=== PATIENT | male | born 1955 | race Caucasian/White ===

== ENCOUNTER 2022-10-25 20:26 | Emergency (ER) | payer MEDICARE, MEDICAID ==
[~2022-10-25] VITALS: Ht 172.7 cm; Wt 75.0 kg
[2022-10-25] MEDS ORDERED: BENZ0.5T49 PO (21:57)
[2022-10-25] MEDS ORDERED: RISP0.5T39 PO (21:57)
[2022-10-25] MEDS ORDERED: HALO5TAB23 PO (21:57)
[2022-10-25] MEDS ORDERED: GABA-1181 PO (21:57)
[2022-10-25] MEDS ORDERED: HALO5VIA16 IM (21:57)
[2022-10-25] MEDS ORDERED: HYDR-4870 PO (21:57)
[2022-10-25] MEDS ORDERED: LORA2I IM (21:57)
[2022-10-25] MEDS ORDERED: LOSA-382 PO (21:57)
[2022-10-25 22:26] LABS: AMPHET/METH SCREEN,URINE NEGATIVE (NEGATIVE); BARBITURATE SCREEN, URINE NEGATIVE (NEGATIVE); BENZODIAZEPINES SCREEN,URINE NEGATIVE (NEGATIVE); CANNABINOID SCREEN,URINE NEGATIVE (NEGATIVE); COCAINE SCREEN,URINE NEGATIVE (NEGATIVE); METHADONE SCREEN, URINE NEGATIVE (NEGATIVE); OPIATE SCREEN,URINE NEGATIVE (NEGATIVE); PHENCYCLIDINE SCREEN,URINE NEGATIVE (NEGATIVE)
[2022-10-25 22:38] LABS: BASOPHILS % (AUTO) 0.6 % (0.0-2.0); EOSINOPHILS % (AUTO) 4.1 % (1.0-6.0); HEMOGLOBIN 12.5 g/dL (13.5-17.5); LYMPHOCYTES # (AUTO) 1.7 K/uL (1.0-4.8); LYMPHOCYTES % (AUTO) 20.9 % (22.0-44.0); MEAN CORPUSCULAR HEMOGLOBIN 30.9 pg (26.0-34.0); MEAN CORPUSCULAR HGB CONC 33.1 G/dL (31.0-37.0); MEAN CORPUSCULAR VOLUME 94 fL (80-100); MONOCYTES # (AUTO) 0.6 K/uL (0.1-1.0); MONOCYTES % (AUTO) 7.7 % (2.0-9.0); NEUTROPHILS # (AUTO) 5.4 K/uL (1.8-7.7); NEUTROPHILS % (AUTO) 66.7 % (40.0-70.0); PLATELET COUNT (AUTO) 170 K/uL (150-450); RED BLOOD CELL COUNT(AUTO) 4.06 MIL/uL (4.50-5.90); RED CELL DISTRIBUTION WIDTH 13.7 % (11.5-14.5)
[2022-10-25 22:48] LABS: ANION GAP 8 mmol/L (8-16); CALCIUM, TOTAL 9.2 mg/dL (8.8-10.5); CARBON DIOXIDE 27 mmol/L (22-29); CHLORIDE 102 mmol/L (98-107); CREATININE 0.75 mg/dL (0.60-1.30); GLOMERULAR FILTR. RATE CALC > 60 mL/min (>60); GLUCOSE,RANDOM 107 mg/dL (70-110); POTASSIUM 3.9 mmol/L (3.5-5.1); SODIUM SERUM 137 mmol/L (136-145); UREA NITROGEN, BLOOD 22 mg/dL (7-18)
[2022-10-25 22:56] LABS: ALANINE AMINOTRANSFERASE 31 U/L (12-78); ALKALINE PHOSPHATASE 80 U/L (46-116); ASPARTATE AMINOTRANSFERASE 17 U/L (15-37); BILIRUBIN,TOTAL 0.3 mg/dL (0.1-1.0)
[2022-10-26 01:30] VITALS: BP 152/87
== END 2022-10-26 02:00 | disposition home or self-care (01) ==
LOC: EMS 20:30
DX: Z04.6 Encounter for general psychiatric examination, requested by authority (principal); J44.9 Chronic obstructive pulmonary disease, unspecified; I10 Essential (primary) hypertension; F20.9 Schizophrenia, unspecified; Z88.5 Allergy status to narcotic agent; Z88.6 Allergy status to analgesic agent; Z88.8 Allergy status to other drugs, medicaments and biological substances
CPT/HCPCS: 99283; 80053; 85025; 36415; 80307 ×2; G0480

== ENCOUNTER 2022-11-27 17:55 | Emergency (ER) | payer MEDICARE, MEDICAID ==
[~2022-11-27] VITALS: Ht 175.3 cm; Wt 57.0 kg
[~2022-11-27 17:55] MED LIST: BENZ0.5T49 PO; GABA-1181 PO; HALO5TAB23 PO; HALO5VIA16 IM; HYDR25TA2 PO; LORA2I IM; LOSA-382 PO; RISP0.5T39 PO
[2022-11-27 19:52] LABS: BASOPHILS % (AUTO) 0.8 % (0.0-2.0); EOSINOPHILS % (AUTO) 1.6 % (1.0-6.0); HEMATOCRIT 44.5 % (41-53); LYMPHOCYTES # (AUTO) 1.8 K/uL (1.0-4.8); LYMPHOCYTES % (AUTO) 16.3 % (22.0-44.0); MEAN CORPUSCULAR HEMOGLOBIN 31.9 pg (26.0-34.0); MEAN CORPUSCULAR HGB CONC 33.7 G/dL (31.0-37.0); MEAN CORPUSCULAR VOLUME 95 fL (80-100); MONOCYTES # (AUTO) 0.7 K/uL (0.1-1.0); MONOCYTES % (AUTO) 6.3 % (2.0-9.0); NEUTROPHILS # (AUTO) 8.5 K/uL (1.8-7.7); PLATELET COUNT (AUTO) 205 K/uL (150-450); RED CELL DISTRIBUTION WIDTH 13.9 % (11.5-14.5)
[2022-11-27 20:02] LABS: ANION GAP 10 mmol/L (8-16); CARBON DIOXIDE 28 mmol/L (22-29); CHLORIDE 101 mmol/L (98-107); CREATININE 0.86 mg/dL (0.60-1.30); GLOMERULAR FILTR. RATE CALC > 60 mL/min (>60); GLUCOSE,RANDOM 107 mg/dL (70-110); POTASSIUM 4.1 mmol/L (3.5-5.1); SODIUM SERUM 139 mmol/L (136-145)
[2022-11-27 20:07] LABS: ALANINE AMINOTRANSFERASE 25 U/L (12-78); ALBUMIN 4.7 g/dL (3.4-5.0); ALKALINE PHOSPHATASE 110 U/L (46-116); ASPARTATE AMINOTRANSFERASE 22 U/L (15-37); BILIRUBIN,TOTAL 0.4 mg/dL (0.1-1.0); TOTAL PROTEIN, SERUM 8.2 g/dL (6.4-8.2)
[2022-11-27 20:20] LABS: AMPHET/METH SCREEN,URINE NEGATIVE (NEGATIVE); BARBITURATE SCREEN, URINE NEGATIVE (NEGATIVE); BENZODIAZEPINES SCREEN,URINE NEGATIVE (NEGATIVE); CANNABINOID SCREEN,URINE NEGATIVE (NEGATIVE); COCAINE SCREEN,URINE NEGATIVE (NEGATIVE); METHADONE SCREEN, URINE NEGATIVE (NEGATIVE); OPIATE SCREEN,URINE NEGATIVE (NEGATIVE); PHENCYCLIDINE SCREEN,URINE NEGATIVE (NEGATIVE)
[2022-11-27 23:45] VITALS: BP 156/90
== END 2022-11-28 00:14 | disposition home or self-care (01) ==
LOC: EMS 18:18
DX: F03.911 Unspecified dementia, unspecified severity, with agitation (principal); J44.9 Chronic obstructive pulmonary disease, unspecified; E03.9 Hypothyroidism, unspecified; F20.9 Schizophrenia, unspecified; I25.10 Atherosclerotic heart disease of native coronary artery without angina pectoris; I10 Essential (primary) hypertension; Z98.890 Other specified postprocedural states; Z88.5 Allergy status to narcotic agent; Z88.6 Allergy status to analgesic agent; Z88.8 Allergy status to other drugs, medicaments and biological substances
CPT/HCPCS: 99284; 80053; 85025; 36415; 80307; G0480

== ENCOUNTER 2023-03-29 19:21 | Emergency (ER) | payer MEDICARE, MEDICAID ==
[~2023-03-29] VITALS: Ht 177.8 cm; Wt 68.2 kg
[~2023-03-29 19:21] MED LIST changes: -BENZ0.5T49 PO; +CYAN500T56 PO; -HALO5TAB23 PO; -HALO5VIA16 IM; +HYDR12.54 PO; +HYDR25TA PO; -HYDR25TA2 PO; +LEVO137T2 PO; +LEVO50 PO; +LITH300C3 PO; +LITH300CRT PO; -LORA2I IM; +LOSA100T59 PO; +OMEP20 PO; +OXCA300T28 PO; +OXCA600T18 PO; -RISP0.5T39 PO; +RISP0.5T66 PO; +RISP1TAB48 PO
[2023-03-29 19:58] VITALS: BP 123/71; PULSE 73; RESP 15; TEMP 98.3
[2023-03-29 20:13] LABS: COVID AG,FIA SOURCE NASOPHARYNGEAL
[2023-03-29 20:24] LABS: BASOPHILS % (AUTO) 0.9 % (0.0-2.0); EOSINOPHILS % (AUTO) 3.2 % (1.0-6.0); HEMATOCRIT 34.6 % (41-53); HEMOGLOBIN 11.8 g/dL (13.5-17.5); LYMPHOCYTES # (AUTO) 1.4 K/uL (1.0-4.8); LYMPHOCYTES % (AUTO) 17.9 % (22.0-44.0); MEAN CORPUSCULAR HEMOGLOBIN 31.8 pg (26.0-34.0); MEAN CORPUSCULAR VOLUME 93 fL (80-100); MONOCYTES # (AUTO) 0.6 K/uL (0.1-1.0); MONOCYTES % (AUTO) 8.4 % (2.0-9.0); NEUTROPHILS # (AUTO) 5.4 K/uL (1.8-7.7); NEUTROPHILS % (AUTO) 69.6 % (40.0-70.0); PLATELET COUNT (AUTO) 172 K/uL (150-450); RED CELL DISTRIBUTION WIDTH 12.9 % (11.5-14.5); WHITE BLOOD COUNT (AUTO) 7.8 K/uL (4.5-11.0)
[2023-03-29] MEDS ORDERED: RisperiDONE 1 MG TABLET PO ONE (20:30)
[2023-03-29] MEDS ORDERED: LORazepam 1 MG TABLET PO ONE (20:30)
[2023-03-29 20:34] LABS: ANION GAP 7 mmol/L (8-16); CALCIUM, TOTAL 8.9 mg/dL (8.8-10.5); CARBON DIOXIDE 25 mmol/L (22-29); CHLORIDE 104 mmol/L (98-107); CREATININE 0.82 mg/dL (0.60-1.30); GLOMERULAR FILTR. RATE CALC > 60 mL/min (>60); GLUCOSE,RANDOM 115 mg/dL (70-110); POTASSIUM 3.5 mmol/L (3.5-5.1); SODIUM SERUM 136 mmol/L (136-145); UREA NITROGEN, BLOOD 29 mg/dL (7-18)
[2023-03-29 20:35] LABS: SARS-COV2 (COVID) ANTIGEN,FIA Negative (Negative)
[2023-03-29 20:41] LABS: ALCOHOL, BLOOD (SERUM) < 3 mg/dL (0-10)
[2023-03-29 20:48] LABS: ALANINE AMINOTRANSFERASE 30 U/L (12-78); ALBUMIN 3.6 g/dL (3.4-5.0); ALKALINE PHOSPHATASE 92 U/L (46-116); ASPARTATE AMINOTRANSFERASE 25 U/L (15-37); BILIRUBIN,TOTAL 0.4 mg/dL (0.1-1.0); THYROID STIMULATING HORMONE 0.67 uIU/mL (0.36-3.74); TOTAL PROTEIN, SERUM 6.4 g/dL (6.4-8.2)
== END 2023-03-29 22:45 | disposition home or self-care (01) ==
LOC: EMS 19:22
DX: F25.0 Schizoaffective disorder, bipolar type (principal); F43.0 Acute stress reaction; J44.9 Chronic obstructive pulmonary disease, unspecified; E03.9 Hypothyroidism, unspecified; I25.10 Atherosclerotic heart disease of native coronary artery without angina pectoris; I10 Essential (primary) hypertension; Z98.890 Other specified postprocedural states; Z88.5 Allergy status to narcotic agent; Z88.6 Allergy status to analgesic agent; Z88.8 Allergy status to other drugs, medicaments and biological substances; Z20.822 Contact with and (suspected) exposure to COVID-19
CPT/HCPCS: 99284; 87426; 80053; 80178; 84443; 85025; 36415; G0480

== ENCOUNTER 2023-04-05 22:52 | Emergency (ER) | payer MEDICARE, MEDICAID ==
[~2023-04-05] VITALS: Ht 177.8 cm; Wt 68.2 kg
[~2023-04-05 22:52] MED LIST changes: -HYDR12.54 PO; -LEVO137T2 PO; -LITH300CRT PO; -LOSA100T59 PO; -OXCA600T18 PO; -RISP1TAB48 PO
[2023-04-05 23:55] LABS: COVID AG,FIA SOURCE NASAL SWAB
[2023-04-05 23:57] LABS: BASOPHILS % (AUTO) 0.4 % (0.0-2.0); EOSINOPHILS % (AUTO) 1.3 % (1.0-6.0); HEMATOCRIT 40.5 % (41-53); HEMOGLOBIN 13.6 g/dL (13.5-17.5); LYMPHOCYTES # (AUTO) 1.2 K/uL (1.0-4.8); LYMPHOCYTES % (AUTO) 9.3 % (22.0-44.0); MEAN CORPUSCULAR HEMOGLOBIN 31.4 pg (26.0-34.0); MEAN CORPUSCULAR HGB CONC 33.5 G/dL (31.0-37.0); MEAN CORPUSCULAR VOLUME 94 fL (80-100); MONOCYTES # (AUTO) 0.9 K/uL (0.1-1.0); MONOCYTES % (AUTO) 7.5 % (2.0-9.0); NEUTROPHILS # (AUTO) 10.1 K/uL (1.8-7.7); NEUTROPHILS % (AUTO) 81.5 % (40.0-70.0); PLATELET COUNT (AUTO) 221 K/uL (150-450); RED BLOOD CELL COUNT(AUTO) 4.32 MIL/uL (4.50-5.90); WHITE BLOOD COUNT (AUTO) 12.4 K/uL (4.5-11.0)
[2023-04-06 00:05] LABS: CALCIUM, TOTAL 9.9 mg/dL (8.8-10.5); CARBON DIOXIDE 31 mmol/L (22-29); CHLORIDE 101 mmol/L (98-107); CREATININE 0.92 mg/dL (0.60-1.30); GLOMERULAR FILTR. RATE CALC > 60 mL/min (>60); GLUCOSE,RANDOM 126 mg/dL (70-110); POTASSIUM 4.4 mmol/L (3.5-5.1); UREA NITROGEN, BLOOD 24 mg/dL (7-18)
[2023-04-06 00:11] LABS: ALANINE AMINOTRANSFERASE 35 U/L (12-78); ALBUMIN 4.1 g/dL (3.4-5.0); ALKALINE PHOSPHATASE 100 U/L (46-116); ANION GAP 8 mmol/L (8-16); ASPARTATE AMINOTRANSFERASE 23 U/L (15-37); BILIRUBIN,TOTAL 0.5 mg/dL (0.1-1.0); SODIUM SERUM 140 mmol/L (136-145); TOTAL PROTEIN, SERUM 7.3 g/dL (6.4-8.2)
[2023-04-06 00:14] LABS: SARS-COV2 (COVID) ANTIGEN,FIA Negative (Negative)
[2023-04-06 00:15] LABS: ALCOHOL, BLOOD (SERUM) < 3 mg/dL (0-10)
[2023-04-06 00:24] LABS: PH,URINE DRUG SCREEN 7.5 (5.0-8.0)
[2023-04-06 00:36] LABS: ALCOHOL, URINE DRUG SCREEN NEGATIVE (NEGATIVE); AMPHET/METH SCREEN,URINE NEGATIVE (NEGATIVE); BARBITURATE SCREEN, URINE NEGATIVE (NEGATIVE); BENZODIAZEPINES SCREEN,URINE NEGATIVE (NEGATIVE); CANNABINOID SCREEN,URINE NEGATIVE (NEGATIVE); COCAINE SCREEN,URINE NEGATIVE (NEGATIVE); METHADONE SCREEN, URINE NEGATIVE (NEGATIVE); OPIATE SCREEN,URINE NEGATIVE (NEGATIVE); PHENCYCLIDINE SCREEN,URINE NEGATIVE (NEGATIVE)
[2023-04-06] MEDS ORDERED: ONDANSETRON HCL 4 MG TABLET PO ONE (01:00)
[2023-04-06 03:05] VITALS: BP 155/81; PULSE 88; RESP 18; TEMP 98
== END 2023-04-06 03:16 | disposition home or self-care (01) ==
LOC: EMS 22:53
DX: F25.0 Schizoaffective disorder, bipolar type (principal); R11.2 Nausea with vomiting, unspecified; I25.10 Atherosclerotic heart disease of native coronary artery without angina pectoris; I10 Essential (primary) hypertension; J44.9 Chronic obstructive pulmonary disease, unspecified; E03.9 Hypothyroidism, unspecified; Z98.890 Other specified postprocedural states; Z88.5 Allergy status to narcotic agent; Z88.6 Allergy status to analgesic agent; Z20.822 Contact with and (suspected) exposure to COVID-19
CPT/HCPCS: 99284; 87426; 80053; 80178; 85025; 36415; 80307; 71045; G0480; Q0162

== ENCOUNTER 2023-04-19 20:46 | Emergency (ER) | payer MEDICARE, MEDICAID ==
[~2023-04-19] VITALS: Ht 165.1 cm; Wt 72.5 kg
[2023-04-19 21:28] VITALS: TEMP 98.6
[2023-04-19 21:29] LABS: BASOPHILS % (AUTO) 0.8 % (0.0-2.0); EOSINOPHILS % (AUTO) 2.9 % (1.0-6.0); HEMATOCRIT 41.3 % (41-53); HEMOGLOBIN 14.2 g/dL (13.5-17.5); LYMPHOCYTES # (AUTO) 1.4 K/uL (1.0-4.8); LYMPHOCYTES % (AUTO) 19.5 % (22.0-44.0); MEAN CORPUSCULAR HEMOGLOBIN 32.1 pg (26.0-34.0); MEAN CORPUSCULAR HGB CONC 34.2 G/dL (31.0-37.0); MEAN CORPUSCULAR VOLUME 94 fL (80-100); MONOCYTES # (AUTO) 0.5 K/uL (0.1-1.0); MONOCYTES % (AUTO) 7.4 % (2.0-9.0); NEUTROPHILS # (AUTO) 5.1 K/uL (1.8-7.7); NEUTROPHILS % (AUTO) 69.4 % (40.0-70.0); PLATELET COUNT (AUTO) 214 K/uL (150-450); RED CELL DISTRIBUTION WIDTH 13.3 % (11.5-14.5); WHITE BLOOD COUNT (AUTO) 7.3 K/uL (4.5-11.0)
[2023-04-19 21:42] LABS: ANION GAP 7 mmol/L (8-16); CALCIUM, TOTAL 10.2 mg/dL (8.8-10.5); CARBON DIOXIDE 30 mmol/L (22-29); CHLORIDE 97 mmol/L (98-107); CREATININE 0.91 mg/dL (0.60-1.30); GLOMERULAR FILTR. RATE CALC > 60 mL/min (>60); GLUCOSE,RANDOM 103 mg/dL (70-110); POTASSIUM 3.8 mmol/L (3.5-5.1); SODIUM SERUM 134 mmol/L (136-145); UREA NITROGEN, BLOOD 23 mg/dL (7-18)
[2023-04-19 21:47] LABS: ALANINE AMINOTRANSFERASE 49 U/L (12-78); ALBUMIN 4.3 g/dL (3.4-5.0); ALKALINE PHOSPHATASE 96 U/L (46-116); ASPARTATE AMINOTRANSFERASE 20 U/L (15-37); BILIRUBIN,TOTAL 0.5 mg/dL (0.1-1.0); LIPASE 38 U/L (16-77); TOTAL PROTEIN, SERUM 8.2 g/dL (6.4-8.2)
[2023-04-19 21:51] LABS: TROPONIN I-HIGH SENSITIVITY 9 ng/L (<76)
[2023-04-19 22:22] LABS: ALCOHOL, BLOOD (SERUM) < 3 mg/dL (0-10)
[2023-04-19 22:27] LABS: PROTHROMBIN TIME 10.2 SEC (9.4-11.6)
[2023-04-19 22:28] LABS: CREATINE KINASE, TOTAL ONLY 64 U/L (39-308)
[2023-04-19 22:32] LABS: B-TYPE NATRIURETIC PEPTIDE 8 pg/mL (0-100)
[2023-04-19 23:00] LABS: TROPONIN I-HIGH SENSITIVITY 10 ng/L (<76)
[2023-04-20] MEDS ORDERED: AmLODIPine BESYLATE 5 MG TABLET PO ONE ×2 (00:30→01:30)
[2023-04-20 00:47] LABS: APPEARANCE,URINE CLEAR (CLEAR); BILIRUBIN,URINE NEGATIVE (NEGATIVE); COLOR,URINE COLORLESS (YELLOW); GLUCOSE, URINE (UA) NEGATIVE (NEGATIVE); KETONES,URINE NEGATIVE (NEGATIVE); LEUKOCYTE ESTERASE ,URINE NEGATIVE (NEGATIVE); NITRATE,URINE NEGATIVE (NEGATIVE); OCCULT BLOOD,URINE NEGATIVE (NEGATIVE); PH,URINE 7.5 (5.0-8.0); PH,URINE DRUG SCREEN 7.5 (5.0-8.0); PROTEIN,URINE NEGATIVE (NEGATIVE); SPECIFIC GRAVITIY, URINE 1.011 (1.003-1.030); UROBILINOGEN,URINE <=1.0 mg/dL (<=1.0)
[2023-04-20 00:54] LABS: AMPHET/METH SCREEN,URINE NEGATIVE (NEGATIVE); BARBITURATE SCREEN, URINE NEGATIVE (NEGATIVE); BENZODIAZEPINES SCREEN,URINE NEGATIVE (NEGATIVE); CANNABINOID SCREEN,URINE NEGATIVE (NEGATIVE); COCAINE SCREEN,URINE NEGATIVE (NEGATIVE); METHADONE SCREEN, URINE NEGATIVE (NEGATIVE); OPIATE SCREEN,URINE NEGATIVE (NEGATIVE); PHENCYCLIDINE SCREEN,URINE NEGATIVE (NEGATIVE)
[2023-04-20 01:01] LABS: ALCOHOL, URINE DRUG SCREEN NEGATIVE (NEGATIVE)
[2023-04-20 04:49] VITALS: BP 170/92; PULSE 70; RESP 20
== END 2023-04-20 05:07 | disposition home or self-care (01) ==
LOC: EMS 20:47
DX: R07.9 Chest pain, unspecified (principal); D64.9 Anemia, unspecified; I10 Essential (primary) hypertension; K21.9 Gastro-esophageal reflux disease without esophagitis; F20.9 Schizophrenia, unspecified; J44.9 Chronic obstructive pulmonary disease, unspecified; R56.9 Unspecified convulsions; I25.10 Atherosclerotic heart disease of native coronary artery without angina pectoris; Z88.5 Allergy status to narcotic agent
CPT/HCPCS: 99285; 71045; 80053; 81003; 82550; 83690; 83880; 84484; 85025; 85610; 85730; 36415; 93005; 80307; G0480

== ENCOUNTER 2023-06-08 13:14 | Inpatient (IN) | payer MEDICARE, MEDICAID ==
[~2023-06-08] VITALS: Ht 185.4 cm; Wt 72.7 kg
[~2023-06-08 13:14] MED LIST changes: +AMLO-257 PO; -CYAN500T56 PO; +ESCI-8 PO; +FAMO20 PO; -HYDR25TA PO; +HYDR25TA2 PO; +LEVO125T95 PO; -LEVO50 PO; -OMEP20 PO; -OXCA300T28 PO; +OXCA300T70 PO
[2023-06-08] MEDS ORDERED: AmLODIPine BESYLATE 5 MG TABLET PO ONE (14:45)
[2023-06-08] MEDS ORDERED: LOSARTAN POTASSIUM 50 MG TABLET PO ONE (16:00)
[2023-06-08] MEDS ORDERED: HYDROCHLOROTHIAZIDE 25 MG TABLET PO ONE (16:00)
[2023-06-08 17:31] LABS: COVID AG,FIA SOURCE NASAL SWAB
[2023-06-08 17:48] LABS: SARS-COV2 (COVID) ANTIGEN,FIA Negative (Negative)
[2023-06-08 18:29] LABS: BASOPHILS % (AUTO) 0.7 % (0.0-2.0); EOSINOPHILS % (AUTO) 1.2 % (1.0-6.0); HEMATOCRIT 37.4 % (41-53); HEMOGLOBIN 12.7 g/dL (13.5-17.5); LYMPHOCYTES # (AUTO) 1.1 K/uL (1.0-4.8); LYMPHOCYTES % (AUTO) 14.2 % (22.0-44.0); MEAN CORPUSCULAR HGB CONC 33.9 G/dL (31.0-37.0); MEAN CORPUSCULAR VOLUME 94 fL (80-100); MONOCYTES # (AUTO) 0.6 K/uL (0.1-1.0); MONOCYTES % (AUTO) 7.8 % (2.0-9.0); NEUTROPHILS # (AUTO) 6.1 K/uL (1.8-7.7); NEUTROPHILS % (AUTO) 76.1 % (40.0-70.0); PLATELET COUNT (AUTO) 176 K/uL (150-450); RED BLOOD CELL COUNT(AUTO) 3.96 MIL/uL (4.50-5.90); RED CELL DISTRIBUTION WIDTH 13.4 % (11.5-14.5)
[2023-06-08 18:33] LABS: ANION GAP 11 mmol/L (8-16); CALCIUM, TOTAL 9.2 mg/dL (8.8-10.5); CARBON DIOXIDE 24 mmol/L (22-29); CHLORIDE 103 mmol/L (98-107); CREATININE 0.75 mg/dL (0.60-1.30); GLOMERULAR FILTR. RATE CALC > 60 mL/min (>60); GLUCOSE,RANDOM 120 mg/dL (70-110); SODIUM SERUM 138 mmol/L (136-145); UREA NITROGEN, BLOOD 26 mg/dL (7-18)
[2023-06-08 18:39] LABS: ALANINE AMINOTRANSFERASE 37 U/L (12-78); ALBUMIN 4.2 g/dL (3.4-5.0); ALKALINE PHOSPHATASE 84 U/L (46-116); ASPARTATE AMINOTRANSFERASE 22 U/L (15-37); BILIRUBIN,TOTAL 0.7 mg/dL (0.1-1.0); TOTAL PROTEIN, SERUM 7.3 g/dL (6.4-8.2)
[2023-06-08 19:02] LABS: ALCOHOL, BLOOD (SERUM) < 3 mg/dL (0-10)
[2023-06-08] MEDS: HALOPERIDOL 5 MG TABLET PO PRN (22:45)
[2023-06-08] MEDS: LORazepam 2 MG TABLET PO PRN (22:45)
[2023-06-09 00:03] VITALS: BP 176/94; PULSE 77; RESP 20; TEMP 97.8; O2SAT 98
[2023-06-09] MEDS ORDERED: ONDANSETRON HCL 4 MG TABLET PO PRN (07:00)
[2023-06-09] MEDS ORDERED: DOCUSATE SODIUM 100 MG CAPSULE PO PRN (07:00)
[2023-06-09] MEDS ORDERED: PETROLATUM,WHITE 28 GM JELLY TP PRN (07:00)
[2023-06-09] MEDS ORDERED: ALBUTEROL SULFATE HFA 90 MCG/PUFF 8 GM INHALER IH PRN (07:00)
[2023-06-09] MEDS ORDERED: GuaiFENesin/D-METHORPHAN [SUGAR-FREE] 200-20MG/10 ML SYRUP UDCUP PO PRN (07:00)
[2023-06-09] MEDS ORDERED: CloNIDine HCL 0.1 MG TABLET PO PRN (07:00)
[2023-06-09] MEDS ORDERED: ACETAMINOPHEN 325 MG TABLET PO PRN (07:00)
[2023-06-09] MEDS ORDERED: LOPERAMIDE HCL 2 MG CAPSULE PO PRN (07:00)
[2023-06-09] MEDS ORDERED: NICOTINE 14 MG/24 HOUR PATCH TD PRN (07:00)
[2023-06-09] MEDS ORDERED: MAGNESIUM HYDROXIDE SUSPENSION 30 ML UDCUP PO PRN (07:00)
[2023-06-09 08:59] VITALS: BP 161/78; PULSE 79; RESP 18; TEMP 96.8; O2SAT 95
[2023-06-09] MEDS: HYDROCHLOROTHIAZIDE 25 MG TABLET PO SCH (09:05)
[2023-06-09] MEDS: OXcarbazepine 300 MG TABLET PO SCH ×2 (09:05→16:24)
[2023-06-09] MEDS: LOSARTAN POTASSIUM 50 MG TABLET PO SCH (09:06)
[2023-06-09] MEDS: FAMOTIDINE 20 MG TABLET PO SCH ×2 (09:06→16:24)
[2023-06-09] MEDS: LEVOTHYROXINE SODIUM 75 MCG TABLET PO SCH (09:07)
[2023-06-09] MEDS: RisperiDONE 2 MG TABLET PO SCH ×2 (12:20→16:23)
[2023-06-09] MEDS: LITHIUM CARBONATE 300 MG CAPSULE PO SCH ×2 (12:20→16:23)
[2023-06-09] MEDS: ESCITALOPRAM OXALATE 10 MG TABLET PO SCH (12:20)
[2023-06-09] MEDS: CarBAMazepine 200 MG TABLET PO SCH ×2 (12:20→16:24)
[2023-06-09] MEDS: HALOPERIDOL 5 MG TABLET PO PRN (20:54)
[2023-06-09] MEDS: LORazepam 2 MG TABLET PO PRN (20:54)
[2023-06-09] MEDS: AmLODIPine BESYLATE 5 MG TABLET PO SCH (21:00)
[2023-06-09 21:30] VITALS: BP 115/68; PULSE 91; RESP 18; TEMP 97.8; O2SAT 95
[2023-06-10] MEDS: LEVOTHYROXINE SODIUM 75 MCG TABLET PO SCH (06:20)
[2023-06-10] MEDS: LOSARTAN POTASSIUM 50 MG TABLET PO SCH (08:09)
[2023-06-10] MEDS: OXcarbazepine 300 MG TABLET PO SCH ×2 (08:12→16:06)
[2023-06-10] MEDS: FAMOTIDINE 20 MG TABLET PO SCH ×2 (08:12→16:06)
[2023-06-10] MEDS: LITHIUM CARBONATE 300 MG CAPSULE PO SCH ×2 (08:12→16:06)
[2023-06-10] MEDS: HYDROCHLOROTHIAZIDE 25 MG TABLET PO SCH (08:12)
[2023-06-10] MEDS: ESCITALOPRAM OXALATE 10 MG TABLET PO SCH (08:12)
[2023-06-10] MEDS: RisperiDONE 2 MG TABLET PO SCH ×2 (08:12→16:05)
[2023-06-10] MEDS: CarBAMazepine 200 MG TABLET PO SCH ×2 (08:12→16:06)
[2023-06-10 08:18] LABS: CHOL/HDL RATIO 4.8 (4.2-7.3)
[2023-06-10 09:25] VITALS: BP 135/67; PULSE 74; RESP 18; TEMP 97.5; O2SAT 74
[2023-06-10] MEDS: IBUPROFEN 400 MG TABLET PO PRN (15:34)
[2023-06-10] MEDS: AmLODIPine BESYLATE 5 MG TABLET PO SCH (20:37)
[2023-06-10 21:06] VITALS: BP 104/55; PULSE 57; RESP 18; TEMP 97.1; O2SAT 99
[2023-06-11] MEDS: LEVOTHYROXINE SODIUM 75 MCG TABLET PO SCH (06:35)
[2023-06-11] MEDS: LOSARTAN POTASSIUM 50 MG TABLET PO SCH (08:13)
[2023-06-11] MEDS: FAMOTIDINE 20 MG TABLET PO SCH ×2 (08:13→16:45)
[2023-06-11] MEDS: LITHIUM CARBONATE 300 MG CAPSULE PO SCH ×2 (08:13→16:45)
[2023-06-11] MEDS: RisperiDONE 2 MG TABLET PO SCH ×2 (08:13→16:45)
[2023-06-11] MEDS: CarBAMazepine 200 MG TABLET PO SCH ×2 (08:13→16:45)
[2023-06-11] MEDS: HYDROCHLOROTHIAZIDE 25 MG TABLET PO SCH (08:14)
[2023-06-11] MEDS: OXcarbazepine 300 MG TABLET PO SCH ×2 (08:14→16:46)
[2023-06-11] MEDS: ESCITALOPRAM OXALATE 10 MG TABLET PO SCH (08:14)
[2023-06-11 08:31] VITALS: BP 155/64; PULSE 74; RESP 19; TEMP 97.8; O2SAT 100
[2023-06-11] MEDS: LORazepam 2 MG TABLET PO PRN (21:08)
[2023-06-11] MEDS: HALOPERIDOL 5 MG TABLET PO PRN (21:08)
[2023-06-11] MEDS: AmLODIPine BESYLATE 5 MG TABLET PO SCH (21:08)
[2023-06-11 21:28] VITALS: RESP 18
[2023-06-12] MEDS: LEVOTHYROXINE SODIUM 75 MCG TABLET PO SCH (06:09)
[2023-06-12] MEDS: OXcarbazepine 300 MG TABLET PO SCH ×3 (09:00→17:00)
[2023-06-12] MEDS: RisperiDONE 2 MG TABLET PO SCH ×3 (09:00→17:00)
[2023-06-12] MEDS: FAMOTIDINE 20 MG TABLET PO SCH ×3 (09:00→17:00)
[2023-06-12] MEDS: CarBAMazepine 200 MG TABLET PO SCH ×3 (09:00→17:00)
[2023-06-12] MEDS: LITHIUM CARBONATE 300 MG CAPSULE PO SCH ×3 (09:00→17:00)
[2023-06-12 09:19] VITALS: BP 154/83; PULSE 54; RESP 18; TEMP 97.3; O2SAT 95
[2023-06-12] MEDS: LOSARTAN POTASSIUM 50 MG TABLET PO SCH (09:54)
[2023-06-12] MEDS: ESCITALOPRAM OXALATE 10 MG TABLET PO SCH (09:54)
[2023-06-12] MEDS: HYDROCHLOROTHIAZIDE 25 MG TABLET PO SCH (09:56)
[2023-06-12] MEDS ORDERED: HALOPERIDOL LACTATE 5 MG/ML VIAL ONE (13:28)
[2023-06-12] MEDS ORDERED: LOSA-382 PO (13:31)
[2023-06-12] MEDS ORDERED: LEVO75 PO (13:31)
[2023-06-12] MEDS ORDERED: LITH300C3 PO (13:31)
[2023-06-12] MEDS: HALOPERIDOL LACTATE 5 MG/ML VIAL IM PRN ×2 (13:50→19:01)
[2023-06-12 21:00] VITALS: BP 152/75; PULSE 60; RESP 18; TEMP 98.8; O2SAT 99
[2023-06-12] MEDS: AmLODIPine BESYLATE 5 MG TABLET PO SCH (21:08)
[2023-06-12] MEDS: HALOPERIDOL 5 MG TABLET PO PRN (21:08)
[2023-06-12] MEDS: LORazepam 2 MG TABLET PO PRN (21:08)
[2023-06-13 04:45] VITALS: BP 143/77; PULSE 66; RESP 18; TEMP 98.2; O2SAT 99
[2023-06-13] MEDS: IBUPROFEN 400 MG TABLET PO PRN (04:50)
[2023-06-13 05:45] VITALS: RESP 18
[2023-06-13] MEDS: LEVOTHYROXINE SODIUM 75 MCG TABLET PO SCH (06:15)
[2023-06-13 08:39] VITALS: BP 151/91; PULSE 53; RESP 18; TEMP 97.9; O2SAT 98
[2023-06-13] MEDS: FAMOTIDINE 20 MG TABLET PO SCH ×2 (09:00→17:23)
[2023-06-13] MEDS: HYDROCHLOROTHIAZIDE 25 MG TABLET PO SCH (09:00)
[2023-06-13] MEDS: LITHIUM CARBONATE 300 MG CAPSULE PO SCH ×2 (09:00→17:24)
[2023-06-13] MEDS: OXcarbazepine 300 MG TABLET PO SCH ×2 (09:00→17:25)
[2023-06-13] MEDS: CarBAMazepine 200 MG TABLET PO SCH ×2 (09:00→17:24)
[2023-06-13] MEDS: ESCITALOPRAM OXALATE 10 MG TABLET PO SCH (09:00)
[2023-06-13] MEDS: LOSARTAN POTASSIUM 50 MG TABLET PO SCH (09:00)
[2023-06-13] MEDS: RisperiDONE 2 MG TABLET PO SCH ×2 (09:24→17:24)
[2023-06-13] MEDS: MAG HYDROX/ALUMINUM HYD/SIMETH ES 30 ML SUSPENSION UDCUP PO PRN (17:23)
[2023-06-13 20:47] VITALS: TEMP 97
[2023-06-13] MEDS: AmLODIPine BESYLATE 5 MG TABLET PO SCH (21:06)
[2023-06-14] MEDS: LEVOTHYROXINE SODIUM 75 MCG TABLET PO SCH (06:52)
[2023-06-14 08:34] VITALS: BP 127/67; PULSE 79; RESP 18; TEMP 97.8; O2SAT 100
[2023-06-14] MEDS: LOSARTAN POTASSIUM 50 MG TABLET PO SCH (09:07)
[2023-06-14] MEDS: CarBAMazepine 200 MG TABLET PO SCH ×2 (09:07→16:09)
[2023-06-14] MEDS: ESCITALOPRAM OXALATE 10 MG TABLET PO SCH (09:07)
[2023-06-14] MEDS: RisperiDONE 2 MG TABLET PO SCH ×2 (09:07→16:09)
[2023-06-14] MEDS: FAMOTIDINE 20 MG TABLET PO SCH ×2 (09:07→16:08)
[2023-06-14] MEDS: LITHIUM CARBONATE 300 MG CAPSULE PO SCH ×2 (09:07→16:08)
[2023-06-14] MEDS: OXcarbazepine 300 MG TABLET PO SCH ×2 (09:07→16:09)
[2023-06-14] MEDS: HYDROCHLOROTHIAZIDE 25 MG TABLET PO SCH (09:07)
[2023-06-14] MEDS: LORazepam 2 MG TABLET PO PRN (20:07)
[2023-06-14 20:12] VITALS: BP 165/70; PULSE 60; RESP 18; TEMP 98; O2SAT 98
[2023-06-14] MEDS: MAG HYDROX/ALUMINUM HYD/SIMETH ES 30 ML SUSPENSION UDCUP PO PRN (20:34)
[2023-06-14] MEDS: AmLODIPine BESYLATE 5 MG TABLET PO SCH (20:51)
[2023-06-15] MEDS: LEVOTHYROXINE SODIUM 75 MCG TABLET PO SCH (06:45)
[2023-06-15 08:00] VITALS: BP 122/70; PULSE 53; RESP 17; TEMP 98; O2SAT 97
[2023-06-15] MEDS: LITHIUM CARBONATE 300 MG CAPSULE PO SCH ×2 (08:26→16:12)
[2023-06-15] MEDS: RisperiDONE 2 MG TABLET PO SCH ×2 (08:27→16:12)
[2023-06-15] MEDS: FAMOTIDINE 20 MG TABLET PO SCH ×2 (08:27→16:12)
[2023-06-15] MEDS: LOSARTAN POTASSIUM 50 MG TABLET PO SCH (08:27)
[2023-06-15] MEDS: ESCITALOPRAM OXALATE 10 MG TABLET PO SCH (08:27)
[2023-06-15] MEDS: OXcarbazepine 300 MG TABLET PO SCH ×2 (08:27→16:12)
[2023-06-15] MEDS: CarBAMazepine 200 MG TABLET PO SCH ×2 (08:27→16:12)
[2023-06-15] MEDS: HYDROCHLOROTHIAZIDE 25 MG TABLET PO SCH (08:28)
[2023-06-15] MEDS: AmLODIPine BESYLATE 5 MG TABLET PO SCH (20:54)
[2023-06-15 21:08] VITALS: BP 132/81; PULSE 63; RESP 18; TEMP 98.1; O2SAT 97
[2023-06-16] MEDS: LEVOTHYROXINE SODIUM 75 MCG TABLET PO SCH (06:52)
[2023-06-16] MEDS: LOSARTAN POTASSIUM 50 MG TABLET PO SCH ×2 (09:00→10:00)
[2023-06-16] MEDS: ESCITALOPRAM OXALATE 10 MG TABLET PO SCH (09:15)
[2023-06-16] MEDS: RisperiDONE 2 MG TABLET PO SCH ×2 (09:15→16:08)
[2023-06-16] MEDS: LITHIUM CARBONATE 300 MG CAPSULE PO SCH ×2 (09:15→16:08)
[2023-06-16] MEDS: CarBAMazepine 200 MG TABLET PO SCH ×2 (09:15→16:08)
[2023-06-16] MEDS: FAMOTIDINE 20 MG TABLET PO SCH ×2 (09:15→16:08)
[2023-06-16] MEDS: OXcarbazepine 300 MG TABLET PO SCH ×2 (09:15→16:07)
[2023-06-16] MEDS: HYDROCHLOROTHIAZIDE 25 MG TABLET PO SCH (09:15)
[2023-06-16 10:27] VITALS: BP 127/56; PULSE 56; RESP 17; TEMP 98; O2SAT 100
[2023-06-16] MEDS: IBUPROFEN 400 MG TABLET PO PRN (14:27)
[2023-06-16 20:53] VITALS: BP 151/55; PULSE 62; RESP 20; TEMP 97.1; O2SAT 98
[2023-06-16] MEDS: LORazepam 2 MG TABLET PO PRN (21:26)
[2023-06-16] MEDS: AmLODIPine BESYLATE 5 MG TABLET PO SCH (21:26)
[2023-06-16] MEDS: HALOPERIDOL 5 MG TABLET PO PRN (21:26)
[2023-06-17] MEDS: MAG HYDROX/ALUMINUM HYD/SIMETH ES 30 ML SUSPENSION UDCUP PO PRN (05:39)
[2023-06-17] MEDS: LEVOTHYROXINE SODIUM 75 MCG TABLET PO SCH (06:07)
[2023-06-17 08:00] VITALS: BP 145/56; PULSE 65; RESP 18; TEMP 98.2; O2SAT 99
[2023-06-17] MEDS: CarBAMazepine 200 MG TABLET PO SCH ×2 (08:50→16:08)
[2023-06-17] MEDS: OXcarbazepine 300 MG TABLET PO SCH ×2 (08:50→16:09)
[2023-06-17] MEDS: RisperiDONE 2 MG TABLET PO SCH ×2 (08:50→16:09)
[2023-06-17] MEDS: ESCITALOPRAM OXALATE 10 MG TABLET PO SCH (08:51)
[2023-06-17] MEDS: LOSARTAN POTASSIUM 50 MG TABLET PO SCH (08:51)
[2023-06-17] MEDS: FAMOTIDINE 20 MG TABLET PO SCH ×2 (08:51→16:09)
[2023-06-17] MEDS: HYDROCHLOROTHIAZIDE 25 MG TABLET PO SCH (08:51)
[2023-06-17] MEDS: LITHIUM CARBONATE 300 MG CAPSULE PO SCH ×2 (08:51→16:09)
[2023-06-17 20:57] VITALS: BP 112/75; PULSE 65; RESP 18; TEMP 97.7; O2SAT 98
[2023-06-17] MEDS: AmLODIPine BESYLATE 5 MG TABLET PO SCH (21:02)
[2023-06-17 21:48] VITALS: BP 112/75; PULSE 63; RESP 19; TEMP 97.7; O2SAT 96
[2023-06-18] MEDS: LEVOTHYROXINE SODIUM 75 MCG TABLET PO SCH (06:50)
[2023-06-18] MEDS: ESCITALOPRAM OXALATE 10 MG TABLET PO SCH (08:08)
[2023-06-18] MEDS: OXcarbazepine 300 MG TABLET PO SCH ×2 (08:08→16:28)
[2023-06-18] MEDS: FAMOTIDINE 20 MG TABLET PO SCH ×2 (08:08→16:28)
[2023-06-18] MEDS: HYDROCHLOROTHIAZIDE 25 MG TABLET PO SCH (08:08)
[2023-06-18] MEDS: RisperiDONE 2 MG TABLET PO SCH ×2 (08:08→16:28)
[2023-06-18] MEDS: CarBAMazepine 200 MG TABLET PO SCH ×2 (08:08→16:27)
[2023-06-18] MEDS: LITHIUM CARBONATE 300 MG CAPSULE PO SCH ×2 (08:08→16:27)
[2023-06-18] MEDS: LOSARTAN POTASSIUM 50 MG TABLET PO SCH (08:19)
[2023-06-18 09:01] VITALS: BP 122/54; PULSE 75; RESP 18; TEMP 98; O2SAT 99
[2023-06-18] MEDS: MAG HYDROX/ALUMINUM HYD/SIMETH ES 30 ML SUSPENSION UDCUP PO PRN ×2 (16:10→22:11)
[2023-06-18 20:00] VITALS: BP 107/57; PULSE 56; RESP 18; TEMP 97.2; O2SAT 99
[2023-06-18] MEDS: AmLODIPine BESYLATE 5 MG TABLET PO SCH (21:00)
[2023-06-19] MEDS: LEVOTHYROXINE SODIUM 75 MCG TABLET PO SCH (06:51)
[2023-06-19] MEDS: OXcarbazepine 300 MG TABLET PO SCH ×2 (09:00→16:12)
[2023-06-19] MEDS: ESCITALOPRAM OXALATE 10 MG TABLET PO SCH (09:00)
[2023-06-19] MEDS: HYDROCHLOROTHIAZIDE 25 MG TABLET PO SCH (09:00)
[2023-06-19] MEDS: RisperiDONE 2 MG TABLET PO SCH ×2 (09:00→16:13)
[2023-06-19] MEDS: CarBAMazepine 200 MG TABLET PO SCH ×2 (09:00→16:13)
[2023-06-19] MEDS: LITHIUM CARBONATE 300 MG CAPSULE PO SCH ×2 (09:00→16:13)
[2023-06-19] MEDS: LOSARTAN POTASSIUM 50 MG TABLET PO SCH (09:00)
[2023-06-19] MEDS: FAMOTIDINE 20 MG TABLET PO SCH ×2 (09:00→16:13)
[2023-06-19 10:25] VITALS: BP 131/67; PULSE 58; RESP 18; TEMP 97.3; O2SAT 97
[2023-06-19] MEDS: IBUPROFEN 400 MG TABLET PO PRN (10:25)
[2023-06-19 20:41] VITALS: BP 118/56; PULSE 62; RESP 19; TEMP 98.7; O2SAT 97
[2023-06-19] MEDS: AmLODIPine BESYLATE 5 MG TABLET PO SCH (20:53)
[2023-06-20] MEDS: LORazepam 2 MG TABLET PO PRN (02:10)
[2023-06-20] MEDS: LEVOTHYROXINE SODIUM 75 MCG TABLET PO SCH (06:36)
[2023-06-20 08:52] VITALS: BP 114/60; PULSE 60; RESP 18; TEMP 97.9; O2SAT 98
[2023-06-20] MEDS: LITHIUM CARBONATE 300 MG CAPSULE PO SCH ×2 (08:52→17:24)
[2023-06-20] MEDS: HYDROCHLOROTHIAZIDE 25 MG TABLET PO SCH (08:52)
[2023-06-20] MEDS: RisperiDONE 2 MG TABLET PO SCH ×2 (08:52→17:24)
[2023-06-20] MEDS: CarBAMazepine 200 MG TABLET PO SCH ×2 (08:53→17:24)
[2023-06-20] MEDS: FAMOTIDINE 20 MG TABLET PO SCH ×2 (08:55→17:26)
[2023-06-20] MEDS: LOSARTAN POTASSIUM 50 MG TABLET PO SCH (08:55)
[2023-06-20] MEDS: ESCITALOPRAM OXALATE 10 MG TABLET PO SCH (08:55)
[2023-06-20] MEDS: OXcarbazepine 300 MG TABLET PO SCH ×2 (08:55→17:25)
[2023-06-20] MEDS: AmLODIPine BESYLATE 5 MG TABLET PO SCH (20:59)
[2023-06-20 21:01] VITALS: BP 102/70; PULSE 84; RESP 18; TEMP 97.1; O2SAT 96
[2023-06-20] MEDS: MAG HYDROX/ALUMINUM HYD/SIMETH ES 30 ML SUSPENSION UDCUP PO PRN (21:06)
[2023-06-21] MEDS: LORazepam 2 MG TABLET PO PRN ×2 (01:16→21:16)
[2023-06-21] MEDS: LEVOTHYROXINE SODIUM 75 MCG TABLET PO SCH (06:34)
[2023-06-21 09:18] VITALS: BP 115/54; PULSE 92; RESP 18; TEMP 97.3; O2SAT 98
[2023-06-21] MEDS: FAMOTIDINE 20 MG TABLET PO SCH ×2 (10:26→17:11)
[2023-06-21] MEDS: RisperiDONE 2 MG TABLET PO SCH ×2 (10:26→17:11)
[2023-06-21] MEDS: HYDROCHLOROTHIAZIDE 25 MG TABLET PO SCH (10:26)
[2023-06-21] MEDS: ESCITALOPRAM OXALATE 10 MG TABLET PO SCH (10:26)
[2023-06-21] MEDS: OXcarbazepine 300 MG TABLET PO SCH ×2 (10:26→17:11)
[2023-06-21] MEDS: LITHIUM CARBONATE 300 MG CAPSULE PO SCH ×2 (10:26→17:11)
[2023-06-21] MEDS: CarBAMazepine 200 MG TABLET PO SCH ×2 (10:26→17:11)
[2023-06-21] MEDS: LOSARTAN POTASSIUM 50 MG TABLET PO SCH (10:27)
[2023-06-21] MEDS: IBUPROFEN 400 MG TABLET PO PRN (12:15)
[2023-06-21 20:44] VITALS: BP 121/56; PULSE 83; RESP 18; TEMP 97.7; O2SAT 96
[2023-06-21] MEDS: AmLODIPine BESYLATE 5 MG TABLET PO SCH (21:16)
[2023-06-22] MEDS: HALOPERIDOL 5 MG TABLET PO PRN (01:59)
[2023-06-22] MEDS: LEVOTHYROXINE SODIUM 75 MCG TABLET PO SCH (06:40)
[2023-06-22 09:54] VITALS: BP 126/68; PULSE 60; RESP 19; TEMP 97.3; O2SAT 95
[2023-06-22] MEDS: LOSARTAN POTASSIUM 50 MG TABLET PO SCH (10:49)
[2023-06-22] MEDS: FAMOTIDINE 20 MG TABLET PO SCH ×2 (10:49→17:23)
[2023-06-22] MEDS: ESCITALOPRAM OXALATE 10 MG TABLET PO SCH (10:49)
[2023-06-22] MEDS: CarBAMazepine 200 MG TABLET PO SCH ×2 (10:50→17:23)
[2023-06-22] MEDS: HYDROCHLOROTHIAZIDE 25 MG TABLET PO SCH (10:50)
[2023-06-22] MEDS: LITHIUM CARBONATE 300 MG CAPSULE PO SCH ×2 (10:50→17:23)
[2023-06-22] MEDS: RisperiDONE 2 MG TABLET PO SCH ×2 (10:50→17:23)
[2023-06-22] MEDS: OXcarbazepine 300 MG TABLET PO SCH ×2 (10:52→17:23)
[2023-06-22] MEDS: AmLODIPine BESYLATE 5 MG TABLET PO SCH (21:00)
[2023-06-22 21:48] VITALS: BP 121/62; PULSE 83; RESP 18; TEMP 98.1; O2SAT 98
[2023-06-23] MEDS: LEVOTHYROXINE SODIUM 75 MCG TABLET PO SCH (06:36)
[2023-06-23] MEDS: LOSARTAN POTASSIUM 50 MG TABLET PO SCH (08:30)
[2023-06-23] MEDS: OXcarbazepine 300 MG TABLET PO SCH (08:30)
[2023-06-23] MEDS: FAMOTIDINE 20 MG TABLET PO SCH (08:31)
[2023-06-23] MEDS: RisperiDONE 2 MG TABLET PO SCH (08:31)
[2023-06-23] MEDS: ESCITALOPRAM OXALATE 10 MG TABLET PO SCH (08:31)
[2023-06-23] MEDS: HYDROCHLOROTHIAZIDE 25 MG TABLET PO SCH (08:31)
[2023-06-23] MEDS: LITHIUM CARBONATE 300 MG CAPSULE PO SCH (08:31)
[2023-06-23] MEDS: CarBAMazepine 200 MG TABLET PO SCH (08:31)
[2023-06-23 10:04] VITALS: BP 163/58; PULSE 61; RESP 19; TEMP 97.9; O2SAT 95
[2023-06-23] MEDS ORDERED: CARB-92 PO (12:34)
[2023-06-23] MEDS ORDERED: RISP2TAB86 PO (12:37)
== END 2023-06-23 13:25 | DRG 885 ==
LOC: EMS 13:16 → 3EI 21:27
PROVIDERS: ADMIT Psychiatry & Neurology Psychiatry; ATTEND Psychiatry & Neurology Psychiatry
PROC: GZHZZZZ Group Psychotherapy (ICD-10-PCS; principal; 2023-06-09)
DX: F25.0 Schizoaffective disorder, bipolar type (principal); K21.9 Gastro-esophageal reflux disease without esophagitis; I10 Essential (primary) hypertension; E03.9 Hypothyroidism, unspecified; F03.90 Unspecified dementia, unspecified severity, without behavioral disturbance, psychotic disturbance, mood disturbance, and anxiety; G89.29 Other chronic pain; M54.50 Low back pain, unspecified; G62.9 Polyneuropathy, unspecified; D64.9 Anemia, unspecified; I25.10 Atherosclerotic heart disease of native coronary artery without angina pectoris; Z20.822 Contact with and (suspected) exposure to COVID-19; J44.9 Chronic obstructive pulmonary disease, unspecified; G40.909 Epilepsy, unspecified, not intractable, without status epilepticus; Z87.820 Personal history of traumatic brain injury; Z88.5 Allergy status to narcotic agent; Z79.899 Other long term (current) drug therapy
CPT/HCPCS: 80053; 80061; 83036; 84443; 85025; 87081; 99285; G0480; J1630; Q0162

== ENCOUNTER 2023-08-15 10:29 | Emergency (ER) | payer MEDICARE, MEDICAID ==
[~2023-08-15] VITALS: Ht 177.8 cm; Wt 72.7 kg
[~2023-08-15 10:29] MED LIST changes: +CARB-92 PO; -GABA-1181 PO; -HYDR25TA2 PO; -LEVO125T95 PO; +LEVO75 PO; -RISP0.5T66 PO; +RISP120S SQ
[2023-08-15 11:23] VITALS: TEMP 97.8
[2023-08-15 13:28] VITALS: BP 179/84; PULSE 65; RESP 16
== END 2023-08-15 13:31 | disposition home or self-care (01) ==
LOC: EMS 10:29
DX: R10.30 Lower abdominal pain, unspecified (principal); F31.9 Bipolar disorder, unspecified; J44.9 Chronic obstructive pulmonary disease, unspecified; I10 Essential (primary) hypertension; E03.9 Hypothyroidism, unspecified; F20.9 Schizophrenia, unspecified; F03.90 Unspecified dementia, unspecified severity, without behavioral disturbance, psychotic disturbance, mood disturbance, and anxiety; Z98.890 Other specified postprocedural states
CPT/HCPCS: 99281; Z7502

== ENCOUNTER 2023-12-13 21:44 | Inpatient (IN) | payer MEDICARE, MEDICAID ==
[~2023-12-13] VITALS: Ht 165.1 cm; Wt 72.8 kg
[~2023-12-13 21:44] MED LIST changes: -CARB-92 PO; -FAMO20 PO; -LITH300C3 PO; +LITH300T PO; -LOSA-382 PO; +MELA5TAB40 PO
[2023-12-13 23:06] LABS: BASOPHILS % (AUTO) 0.4 % (0.0-2.0); EOSINOPHILS % (AUTO) 3.3 % (1.0-6.0); HEMATOCRIT 35.2 % (41-53); HEMOGLOBIN 11.8 g/dL (13.5-17.5); LYMPHOCYTES # (AUTO) 1.5 K/uL (1.0-4.8); LYMPHOCYTES % (AUTO) 13.7 % (22.0-44.0); MEAN CORPUSCULAR HEMOGLOBIN 32.2 pg (26.0-34.0); MEAN CORPUSCULAR HGB CONC 33.4 G/dL (31.0-37.0); MEAN CORPUSCULAR VOLUME 96 fL (80-100); MONOCYTES # (AUTO) 1.2 K/uL (0.1-1.0); MONOCYTES % (AUTO) 10.9 % (2.0-9.0); NEUTROPHILS # (AUTO) 7.7 K/uL (1.8-7.7); NEUTROPHILS % (AUTO) 71.7 % (40.0-70.0); PLATELET COUNT (AUTO) 163 K/uL (150-450); RED BLOOD CELL COUNT(AUTO) 3.66 MIL/uL (4.50-5.90); RED CELL DISTRIBUTION WIDTH 13.2 % (11.5-14.5); WHITE BLOOD COUNT (AUTO) 10.8 K/uL (4.5-11.0)
[2023-12-13 23:09] LABS: COVID AG,FIA SOURCE NASAL SWAB
[2023-12-13 23:11] LABS: APPEARANCE,URINE CLEAR (CLEAR); BILIRUBIN,URINE NEGATIVE (NEGATIVE); COLOR,URINE LIGHT YELLOW (YELLOW); GLUCOSE, URINE (UA) NEGATIVE (NEGATIVE); KETONES,URINE NEGATIVE (NEGATIVE); LEUKOCYTE ESTERASE ,URINE NEGATIVE (NEGATIVE); NITRATE,URINE NEGATIVE (NEGATIVE); OCCULT BLOOD,URINE NEGATIVE (NEGATIVE); PH,URINE 7.5 (5.0-8.0); PH,URINE DRUG SCREEN 7.5 (5.0-8.0); PROTEIN,URINE NEGATIVE (NEGATIVE); SPECIFIC GRAVITIY, URINE 1.013 (1.003-1.030); UROBILINOGEN,URINE <=1.0 mg/dL (<=1.0)
[2023-12-13 23:13] LABS: ALCOHOL, BLOOD (SERUM) < 3 mg/dL (0-10); ANION GAP 7 mmol/L (8-16); CALCIUM, TOTAL 9.4 mg/dL (8.8-10.5); CARBON DIOXIDE 28 mmol/L (22-29); CHLORIDE 104 mmol/L (98-107); GLOMERULAR FILTR. RATE CALC > 60 mL/min (>60); GLUCOSE,RANDOM 108 mg/dL (70-110); LITHIUM 1.23 mmol/L (0.60-1.20); SODIUM SERUM 139 mmol/L (136-145); UREA NITROGEN, BLOOD 16 mg/dL (7-18)
[2023-12-13 23:17] LABS: ALCOHOL, URINE DRUG SCREEN NEGATIVE (NEGATIVE); AMPHET/METH SCREEN,URINE NEGATIVE (NEGATIVE); BARBITURATE SCREEN, URINE NEGATIVE (NEGATIVE); BENZODIAZEPINES SCREEN,URINE NEGATIVE (NEGATIVE); CANNABINOID SCREEN,URINE NEGATIVE (NEGATIVE); COCAINE SCREEN,URINE NEGATIVE (NEGATIVE); METHADONE SCREEN, URINE NEGATIVE (NEGATIVE); OPIATE SCREEN,URINE NEGATIVE (NEGATIVE); PHENCYCLIDINE SCREEN,URINE NEGATIVE (NEGATIVE)
[2023-12-13 23:21] LABS: TROPONIN I-HIGH SENSITIVITY 7 ng/L (<76)
[2023-12-13 23:25] LABS: BACTERIA,URINE None Seen /HPF (None Seen); RBC,URINE 0-2 /HPF (0-2); SQUAMOUS EPITHELIAL CELL,UR Rare /LPF (None Seen); WBC,URINE 0-2 /HPF (0-5)
[2023-12-13 23:27] LABS: SARS-COV2 (COVID) ANTIGEN,FIA Negative (Negative)
[2023-12-14] MEDS ORDERED: FAMO20 PO (06:36)
[2023-12-14 14:37] VITALS: BP 174/84; PULSE 68; RESP 18; TEMP 97.4; O2SAT 96
[2023-12-14 15:10] VITALS: BP 174/84; PULSE 68; RESP 18; TEMP 97.4; O2SAT 96
[2023-12-14 17:00] VITALS: BP 163/76; PULSE 71; RESP 18; TEMP 98; O2SAT 98
[2023-12-14] MEDS: MAG HYDROX/ALUMINUM HYD/SIMETH ES 30 ML SUSPENSION UDCUP PO PRN (17:13)
[2023-12-14 17:21] VITALS: BP 161/87; PULSE 68; RESP 18; O2SAT 98
[2023-12-14] MEDS ORDERED: PNEUMOCOCCAL VACCINE POLYVALENT 0.5 ML SYRINGE [PPSV23] IM. ONE (18:00)
[2023-12-14] MEDS: OMEPRAZOLE 20 MG CAPSULE PO ONE (18:27)
[2023-12-14] MEDS: AmLODIPine BESYLATE 5 MG TABLET PO SCH (19:31)
[2023-12-14 20:07] VITALS: BP 162/69; PULSE 71; RESP 18; TEMP 98.1; O2SAT 96
[2023-12-14] MEDS ORDERED: NICOTINE 14 MG/24 HOUR PATCH TD PRN (22:00)
[2023-12-14] MEDS ORDERED: PETROLATUM,WHITE 28 GM JELLY TP PRN (22:00)
[2023-12-14] MEDS ORDERED: GuaiFENesin/D-METHORPHAN [SUGAR-FREE] 200-20MG/10 ML SYRUP UDCUP PO PRN (22:00)
[2023-12-14] MEDS ORDERED: ONDANSETRON HCL 4 MG TABLET PO PRN (22:00)
[2023-12-14] MEDS ORDERED: MAG HYDROX/ALUMINUM HYD/SIMETH ES 30 ML SUSPENSION UDCUP PO PRN (22:00)
[2023-12-14] MEDS ORDERED: ALBUTEROL SULFATE HFA 90 MCG/PUFF 8 GM INHALER IH PRN (22:00)
[2023-12-14] MEDS ORDERED: LOPERAMIDE HCL 2 MG CAPSULE PO PRN (22:00)
[2023-12-14] MEDS ORDERED: ACETAMINOPHEN 325 MG TABLET PO PRN (22:00)
[2023-12-14] MEDS ORDERED: MAGNESIUM HYDROXIDE SUSPENSION 30 ML UDCUP PO PRN (22:00)
[2023-12-14] MEDS: LORazepam 2 MG TABLET PO PRN (22:03)
[2023-12-14] MEDS: ZOLPIDEM TARTRATE 10 MG TABLET PO PRN (22:03)
[2023-12-15 06:31] VITALS: BP 180/82; PULSE 75; RESP 18; TEMP 98; O2SAT 97
[2023-12-15] MEDS: CloNIDine HCL 0.1 MG TABLET PO PRN (06:49)
[2023-12-15] MEDS: LEVOTHYROXINE SODIUM 75 MCG TABLET PO SCH (06:51)
[2023-12-15 07:39] LABS: BASOPHILS % (AUTO) 0.6 % (0.0-2.0); EOSINOPHILS % (AUTO) 3.7 % (1.0-6.0); HEMATOCRIT 39.3 % (41-53); HEMOGLOBIN 13.2 g/dL (13.5-17.5); LYMPHOCYTES # (AUTO) 1.4 K/uL (1.0-4.8); MEAN CORPUSCULAR HEMOGLOBIN 32.2 pg (26.0-34.0); MEAN CORPUSCULAR HGB CONC 33.5 G/dL (31.0-37.0); MEAN CORPUSCULAR VOLUME 96 fL (80-100); MONOCYTES # (AUTO) 0.6 K/uL (0.1-1.0); MONOCYTES % (AUTO) 7.6 % (2.0-9.0); NEUTROPHILS # (AUTO) 5.8 K/uL (1.8-7.7); NEUTROPHILS % (AUTO) 71.1 % (40.0-70.0); PLATELET COUNT (AUTO) 191 K/uL (150-450); RED BLOOD CELL COUNT(AUTO) 4.09 MIL/uL (4.50-5.90); RED CELL DISTRIBUTION WIDTH 13.1 % (11.5-14.5); WHITE BLOOD COUNT (AUTO) 8.1 K/uL (4.5-11.0)
[2023-12-15 08:00] LABS: HEMOGLOBIN A1C 5.5 % (3.8-5.6)
[2023-12-15 08:18] LABS: ALANINE AMINOTRANSFERASE 48 U/L (12-78); ALBUMIN 3.4 g/dL (3.4-5.0); ALKALINE PHOSPHATASE 96 U/L (46-116); ANION GAP 10 mmol/L (8-16); ASPARTATE AMINOTRANSFERASE 26 U/L (15-37); BILIRUBIN,TOTAL 0.5 mg/dL (0.1-1.0); CALCIUM, TOTAL 9.5 mg/dL (8.8-10.5); CARBON DIOXIDE 26 mmol/L (22-29); CHLORIDE 102 mmol/L (98-107); CHOL/HDL RATIO 5.4 (4.2-7.3); CHOLESTEROL 245 mg/dL (131-200); GLOMERULAR FILTR. RATE CALC > 60 mL/min (>60); GLUCOSE,RANDOM 147 mg/dL (70-110); HDL CHOLESTEROL 45 mg/dL (40-60); LDL CHOL (CALC.) 179 mg/dL (0-130); POTASSIUM 3.9 mmol/L (3.5-5.1); SODIUM SERUM 138 mmol/L (136-145); THYROID STIMULATING HORMONE 6.94 uIU/mL (0.36-3.74); TRIGLYCERIDES 106 mg/dL (15-150); UREA NITROGEN, BLOOD 14 mg/dL (7-18)
[2023-12-15 08:26] LABS: TROPONIN I-HIGH SENSITIVITY 7 ng/L (<76)
[2023-12-15 09:30] VITALS: BP 134/72; PULSE 71; RESP 18; TEMP 98; O2SAT 97
[2023-12-15] MEDS: HALOPERIDOL 5 MG TABLET PO PRN (09:35)
[2023-12-15] MEDS: OXcarbazepine 300 MG TABLET PO SCH ×2 (09:35→16:09)
[2023-12-15] MEDS: AmLODIPine BESYLATE 5 MG TABLET PO SCH (09:35)
[2023-12-15] MEDS: RisperiDONE ER SUSPENSION 120 MG PRE-FILLED SYRINGE SQ SCH (12:38)
[2023-12-15] MEDS: ESCITALOPRAM OXALATE 10 MG TABLET PO SCH (12:38)
[2023-12-15] MEDS: LITHIUM CARBONATE 300 MG TABLET PO SCH (16:09)
[2023-12-15] MEDS ORDERED: AmLODIPine BESYLATE 5 MG TABLET PO SCH (21:00)
[2023-12-15 21:34] VITALS: RESP 18
[2023-12-16 09:55] VITALS: BP 147/87; PULSE 75; RESP 16; TEMP 98.4; O2SAT 98
[2023-12-16 20:52] VITALS: BP 112/56; PULSE 85; RESP 18; TEMP 97.9
[2023-12-17 10:00] VITALS: BP 142/80; PULSE 79; RESP 18; TEMP 97.8
[2023-12-17] MEDS: IBUPROFEN 400 MG TABLET PO PRN (13:26)
[2023-12-17 13:27] VITALS: BP 139/79; PULSE 78; RESP 18
[2023-12-17 20:29] VITALS: BP 129/60; PULSE 69; RESP 18; TEMP 97.7; O2SAT 97
[2023-12-18 09:02] VITALS: BP 137/75; PULSE 59; RESP 17; TEMP 97.7; O2SAT 98
[2023-12-18 13:30] VITALS: BP 135/88; PULSE 68; RESP 19; TEMP 97.8; O2SAT 99
[2023-12-18 21:20] VITALS: BP 134/81; PULSE 74; RESP 18; TEMP 97.1; O2SAT 98
[2023-12-19 09:32] VITALS: BP 142/78; PULSE 69; RESP 19; TEMP 97.4; O2SAT 95
[2023-12-19 15:46] VITALS: BP 138/76; PULSE 72; RESP 18; TEMP 97.3
[2023-12-19 16:46] VITALS: RESP 17
[2023-12-19 20:31] VITALS: BP 135/80; PULSE 75; RESP 18; TEMP 97.5; O2SAT 97
[2023-12-20 09:41] VITALS: BP 112/61; PULSE 66; RESP 20; TEMP 97.2; O2SAT 99
[2023-12-20 10:12] VITALS: BP_SYST 118; BP_DIAS 68; BP_DIAS 72; PULSE 68; PULSE 72; RESP 18; RESP 19; TEMP 97.5
[2023-12-20 11:12] VITALS: RESP 18
[2023-12-20 15:23] VITALS: BP 118/68; PULSE 72; RESP 18; TEMP 97.5
[2023-12-20 21:49] VITALS: BP 127/63; PULSE 63; RESP 18; TEMP 98.6; O2SAT 99
[2023-12-21 09:11] VITALS: BP 135/57; PULSE 62; RESP 18; TEMP 98.4; O2SAT 98
[2023-12-21 11:04] VITALS: BP 128/64; PULSE 66; RESP 18; TEMP 97.9
[2023-12-21 12:04] VITALS: RESP 18
[2023-12-21] MEDS: DOCUSATE SODIUM 100 MG CAPSULE PO PRN (16:30)
[2023-12-21 20:13] VITALS: BP 131/77; PULSE 62; RESP 18; TEMP 98.1; O2SAT 96
[2023-12-22 08:58] VITALS: BP 112/60; PULSE 56; RESP 18; TEMP 97.5; O2SAT 95
[2023-12-22 09:31] VITALS: BP 112/60; PULSE 65; RESP 18; TEMP 97.8; O2SAT 98
[2023-12-22 10:31] VITALS: RESP 17
[2023-12-22 16:45] VITALS: BP 109/59; PULSE 61; RESP 18; TEMP 97.8; O2SAT 98
[2023-12-22 22:34] VITALS: BP 118/65; PULSE 77; RESP 18; TEMP 98.6; O2SAT 97
[2023-12-23 09:46] VITALS: BP 117/61; PULSE 56; RESP 16; TEMP 96.6; O2SAT 95
[2023-12-23 16:57] VITALS: BP 133/75; PULSE 58
[2023-12-23 20:50] VITALS: BP 114/68; PULSE 62; RESP 18; TEMP 98.1; O2SAT 98
[2023-12-24 08:41] VITALS: BP 126/66; PULSE 60; RESP 18; TEMP 96.9; O2SAT 98
[2023-12-24 10:29] VITALS: BP 128/66; PULSE 53; RESP 16; TEMP 96.9
[2023-12-24 20:45] VITALS: BP 112/57; PULSE 57; RESP 18; TEMP 97.6; O2SAT 98
[2023-12-24 23:28] VITALS: BP 123/62; PULSE 75; RESP 16; TEMP 97.6; O2SAT 98
[2023-12-25 08:00] VITALS: BP 132/72; PULSE 63; RESP 18; TEMP 97.8; O2SAT 95
[2023-12-25 15:27] VITALS: BP 128/74; PULSE 68; RESP 19; TEMP 97.5; O2SAT 97
[2023-12-25 16:27] VITALS: BP 122/76; PULSE 64; RESP 18; TEMP 97.6
[2023-12-25 22:22] VITALS: BP 130/63; PULSE 60; RESP 19; TEMP 98.4; O2SAT 98
[2023-12-26 08:25] VITALS: BP 129/76; PULSE 73; RESP 18; TEMP 97.6; O2SAT 98
[2023-12-26 20:16] VITALS: BP 120/70; PULSE 67; RESP 18; TEMP 98.4; O2SAT 98
[2023-12-27 10:32] VITALS: BP 158/89; PULSE 64; RESP 18; TEMP 97.8; O2SAT 96
[2023-12-27 12:12] VITALS: RESP 18
== END 2023-12-27 18:06 | DRG 885 ==
LOC: EMS 21:44 → B2X 12-14 12:18 → 3EX 12-14 21:03 → 3EI 12-15 11:37
PROVIDERS: ADMIT Psychiatry & Neurology Child & Adolescent Psychiatry; ATTEND Psychiatry & Neurology Child & Adolescent Psychiatry
PROC: GZHZZZZ Group Psychotherapy (ICD-10-PCS; principal; 2023-12-15)
PROC: GZ52ZZZ Individual Psychotherapy, Cognitive (ICD-10-PCS; 2023-12-15)
DX: F25.0 Schizoaffective disorder, bipolar type (principal); F03.918 Unspecified dementia, unspecified severity, with other behavioral disturbance; I10 Essential (primary) hypertension; J44.9 Chronic obstructive pulmonary disease, unspecified; K21.9 Gastro-esophageal reflux disease without esophagitis; G47.00 Insomnia, unspecified; Z20.822 Contact with and (suspected) exposure to COVID-19; G62.9 Polyneuropathy, unspecified; E03.9 Hypothyroidism, unspecified; R73.9 Hyperglycemia, unspecified; M54.9 Dorsalgia, unspecified; D64.9 Anemia, unspecified; I25.10 Atherosclerotic heart disease of native coronary artery without angina pectoris; G89.29 Other chronic pain; Z95.5 Presence of coronary angioplasty implant and graft; Z88.5 Allergy status to narcotic agent; Z87.820 Personal history of traumatic brain injury; Z79.899 Other long term (current) drug therapy
CPT/HCPCS: 80048; 80053; 80061; 80178; 80307; 81001; 83036; 84484; 85025; 87081; 99285; G0378; G0480; Q9967

== ENCOUNTER 2024-04-24 17:09 | Inpatient (IN) | payer MEDICARE, MEDICAID ==
[~2024-04-24] VITALS: Ht 177.8 cm; Wt 70.5 kg
[~2024-04-24 17:09] MED LIST changes: -MELA5TAB40 PO
[2024-04-24] MEDS ORDERED: MELA3TAB89 PO (17:31)
[2024-04-24] MEDS ORDERED: LORA-999 PO (17:31)
[2024-04-24 18:16] LABS: ANION GAP 11 mmol/L (8-16); CALCIUM, TOTAL 8.9 mg/dL (8.8-10.5); CARBON DIOXIDE 27 mmol/L (22-29); CHLORIDE 100 mmol/L (98-107); CREATININE 0.57 mg/dL (0.60-1.30); GLOMERULAR FILTR. RATE CALC > 60 mL/min (>60); GLUCOSE,RANDOM 100 mg/dL (70-110); POTASSIUM 4.1 mmol/L (3.5-5.1); SODIUM SERUM 138 mmol/L (136-145); UREA NITROGEN, BLOOD 14 mg/dL (7-18)
[2024-04-24 18:19] LABS: BASOPHILS % (AUTO) 0.8 % (0.0-2.0); EOSINOPHILS % (AUTO) 2.9 % (1.0-6.0); HEMATOCRIT 37.8 % (41-53); HEMOGLOBIN 12.6 g/dL (13.5-17.5); LYMPHOCYTES # (AUTO) 1.5 K/uL (1.0-4.8); MEAN CORPUSCULAR HEMOGLOBIN 32.3 pg (26.0-34.0); MEAN CORPUSCULAR HGB CONC 33.5 G/dL (31.0-37.0); MEAN CORPUSCULAR VOLUME 97 fL (80-100); MONOCYTES # (AUTO) 0.7 K/uL (0.1-1.0); MONOCYTES % (AUTO) 8.6 % (2.0-9.0); NEUTROPHILS # (AUTO) 5.7 K/uL (1.8-7.7); NEUTROPHILS % (AUTO) 69.7 % (40.0-70.0); PLATELET COUNT (AUTO) 193 K/uL (150-450); RED BLOOD CELL COUNT(AUTO) 3.91 MIL/uL (4.50-5.90); RED CELL DISTRIBUTION WIDTH 13.2 % (11.5-14.5); WHITE BLOOD COUNT (AUTO) 8.1 K/uL (4.5-11.0)
[2024-04-24 18:21] LABS: ALCOHOL, BLOOD (SERUM) < 3 mg/dL (0-10)
[2024-04-24 18:22] LABS: COVID AG,FIA SOURCE NASAL SWAB
[2024-04-24 18:29] LABS: APPEARANCE,URINE CLEAR (CLEAR); BILIRUBIN,URINE NEGATIVE (NEGATIVE); COLOR,URINE COLORLESS (YELLOW); GLUCOSE, URINE (UA) NEGATIVE (NEGATIVE); KETONES,URINE NEGATIVE (NEGATIVE); LEUKOCYTE ESTERASE ,URINE NEGATIVE (NEGATIVE); NITRATE,URINE NEGATIVE (NEGATIVE); OCCULT BLOOD,URINE NEGATIVE (NEGATIVE); PROTEIN,URINE NEGATIVE (NEGATIVE); SPECIFIC GRAVITIY, URINE 1.009 (1.003-1.030); UROBILINOGEN,URINE <=1.0 mg/dL (<=1.0)
[2024-04-24 18:36] LABS: AMPHET/METH SCREEN,URINE NEGATIVE (NEGATIVE); BARBITURATE SCREEN, URINE NEGATIVE (NEGATIVE); BENZODIAZEPINES SCREEN,URINE NEGATIVE (NEGATIVE); CANNABINOID SCREEN,URINE NEGATIVE (NEGATIVE); COCAINE SCREEN,URINE NEGATIVE (NEGATIVE); METHADONE SCREEN, URINE NEGATIVE (NEGATIVE); OPIATE SCREEN,URINE NEGATIVE (NEGATIVE); PHENCYCLIDINE SCREEN,URINE NEGATIVE (NEGATIVE)
[2024-04-24 18:37] LABS: ALCOHOL, URINE DRUG SCREEN NEGATIVE (NEGATIVE)
[2024-04-24 18:50] LABS: SARS-COV2 (COVID) ANTIGEN,FIA Negative (Negative)
[2024-04-25] VITALS (8 sets, daily range): BP systolic 126–177; BP diastolic 75–91; PULSE 67–87; RESP 18–19; TEMP 97.3–98.3; O2SAT 97–98
[2024-04-25] MEDS ORDERED: PNEUMOCOCCAL VACCINE POLYVALENT 0.5 ML SYRINGE [PPSV23] IM. ONE (05:00)
[2024-04-25] MEDS: LORazepam 2 MG TABLET PO PRN (05:03)
[2024-04-25] MEDS: ACETAMINOPHEN 325 MG TABLET PO PRN (05:03)
[2024-04-25] MEDS: LEVOTHYROXINE SODIUM 75 MCG TABLET PO SCH (06:55)
[2024-04-25] MEDS: AmLODIPine BESYLATE 5 MG TABLET PO SCH (08:47)
[2024-04-25] MEDS: ESCITALOPRAM OXALATE 10 MG TABLET PO SCH (12:10)
[2024-04-25] MEDS: OXcarbazepine 300 MG TABLET PO SCH (16:29)
[2024-04-25] MEDS: LITHIUM CARBONATE 300 MG TABLET PO SCH (16:29)
[2024-04-25] MEDS ORDERED: DOCUSATE SODIUM 100 MG CAPSULE PO PRN (17:30)
[2024-04-25] MEDS ORDERED: LOPERAMIDE HCL 2 MG CAPSULE PO PRN (17:30)
[2024-04-25] MEDS ORDERED: GuaiFENesin/D-METHORPHAN [SUGAR-FREE] 200-20MG/10 ML SYRUP UDCUP PO PRN (17:30)
[2024-04-25] MEDS ORDERED: PETROLATUM,WHITE 28 GM JELLY TP PRN (17:30)
[2024-04-25] MEDS ORDERED: NICOTINE 14 MG/24 HOUR PATCH TD PRN (17:30)
[2024-04-25] MEDS ORDERED: CloNIDine HCL 0.1 MG TABLET PO PRN (17:30)
[2024-04-25] MEDS ORDERED: ONDANSETRON 4 MG TABLET PO PRN (17:30)
[2024-04-25] MEDS ORDERED: MAGNESIUM HYDROXIDE SUSPENSION 30 ML UDCUP PO PRN (17:30)
[2024-04-25] MEDS ORDERED: ALBUTEROL SULFATE HFA 90 MCG/PUFF 8 GM INHALER IH PRN (17:30)
[2024-04-25] MEDS: IBUPROFEN 400 MG TABLET PO PRN (18:01)
[2024-04-25] MEDS ORDERED: MELATONIN 3 MG TABLET PO SCH (21:00)
[2024-04-25] MEDS: MELATONIN 3 MG TABLET PO SCH (21:03)
[2024-04-26 06:13] VITALS: BP 120/74; RESP 18; O2SAT 97
[2024-04-26] MEDS: ACETAMINOPHEN 325 MG TABLET PO PRN (06:13)
[2024-04-26] MEDS: LEVOTHYROXINE SODIUM 75 MCG TABLET PO SCH (06:58)
[2024-04-26 07:13] VITALS: RESP 19
[2024-04-26 07:51] LABS: HEMOGLOBIN A1C 5.4 % (3.8-5.6)
[2024-04-26 08:01] LABS: THYROID STIMULATING HORMONE 5.44 uIU/mL (0.36-3.74)
[2024-04-26] MEDS: AmLODIPine BESYLATE 5 MG TABLET PO SCH (08:46)
[2024-04-26] MEDS: HALOPERIDOL 5 MG TABLET PO PRN (08:46)
[2024-04-26 09:29] LABS: CHOL/HDL RATIO 4.6 (4.2-7.3)
[2024-04-26 10:03] VITALS: BP 159/86; PULSE 81; RESP 18; TEMP 97.9; O2SAT 100
[2024-04-26 22:13] VITALS: BP 145/82; PULSE 83; RESP 18; TEMP 97.9; O2SAT 98
[2024-04-26] MEDS: MAG HYDROX/ALUMINUM HYD/SIMETH ES 30 ML SUSPENSION UDCUP PO PRN (22:18)
[2024-04-26] MEDS: ZOLPIDEM TARTRATE 10 MG TABLET PO PRN (23:22)
[2024-04-27 07:39] VITALS: BP 136/75; PULSE 88; RESP 18; TEMP 97.6; O2SAT 97
[2024-04-27 08:19] VITALS: BP 136/75; PULSE 88; RESP 18; TEMP 97.6; O2SAT 97
[2024-04-27 20:06] VITALS: BP 119/70; PULSE 65; RESP 18; TEMP 97.6; O2SAT 98
[2024-04-28 09:19] VITALS: BP 109/69; PULSE 73; RESP 16; TEMP 98.7; O2SAT 95
[2024-04-28 14:48] VITALS: BP 112/69; PULSE 78; RESP 18; TEMP 97.9; O2SAT 97
[2024-04-28 20:24] VITALS: BP 111/56; PULSE 58; RESP 18; TEMP 98.2; O2SAT 98
[2024-04-29 08:54] VITALS: BP 155/82; PULSE 74; RESP 18; TEMP 98.4; O2SAT 96
[2024-04-29 21:21] VITALS: BP 100/60; PULSE 55; RESP 18; TEMP 97.5; O2SAT 96
[2024-04-30 08:00] VITALS: BP 116/68; PULSE 55; RESP 20; TEMP 98
[2024-04-30 20:30] VITALS: BP 119/78; PULSE 62; RESP 18; TEMP 97.3; O2SAT 98
[2024-05-01 04:20] VITALS: BP 128/70; PULSE 70; RESP 19; TEMP 98.1; O2SAT 97
[2024-05-01 05:26] VITALS: RESP 18
[2024-05-01 09:48] VITALS: BP 137/76; PULSE 82; RESP 18; TEMP 98.3; O2SAT 98
[2024-05-01 15:15] VITALS: BP 126/74; PULSE 89; RESP 18; TEMP 97.5; O2SAT 97
[2024-05-01 16:15] VITALS: RESP 18
[2024-05-01 20:28] VITALS: BP 149/67; PULSE 64; RESP 17; TEMP 97.4; O2SAT 97
[2024-05-02 03:18] VITALS: BP 133/68; PULSE 60; RESP 18; TEMP 97.2; O2SAT 98
[2024-05-02 09:03] VITALS: BP 158/82; PULSE 63; RESP 18; TEMP 97.4; O2SAT 97
[2024-05-02 14:40] VITALS: BP 155/68; PULSE 70; RESP 16; TEMP 97.8; O2SAT 100
[2024-05-02 16:38] VITALS: BP 148/78; RESP 17; O2SAT 98
== END 2024-05-02 17:43 | DRG 885 ==
LOC: EMS 17:09 → 3EX 04-25 03:27
PROVIDERS: ADMIT Psychiatry & Neurology Child & Adolescent Psychiatry; ATTEND Psychiatry & Neurology Child & Adolescent Psychiatry
PROC: GZ56ZZZ Individual Psychotherapy, Supportive (ICD-10-PCS; principal; 2024-04-25)
PROC: GZ52ZZZ Individual Psychotherapy, Cognitive (ICD-10-PCS; 2024-04-25)
DX: F25.0 Schizoaffective disorder, bipolar type (principal); E03.9 Hypothyroidism, unspecified; I10 Essential (primary) hypertension; Z88.5 Allergy status to narcotic agent; K21.9 Gastro-esophageal reflux disease without esophagitis; J44.9 Chronic obstructive pulmonary disease, unspecified; F03.90 Unspecified dementia, unspecified severity, without behavioral disturbance, psychotic disturbance, mood disturbance, and anxiety; G47.00 Insomnia, unspecified; G89.29 Other chronic pain; Z20.822 Contact with and (suspected) exposure to COVID-19; M54.50 Low back pain, unspecified; G62.9 Polyneuropathy, unspecified; D64.9 Anemia, unspecified; I25.10 Atherosclerotic heart disease of native coronary artery without angina pectoris
CPT/HCPCS: 80048; 80061; 80178; 80307; 81003; 83036; 84443; 85025; 87081; 87481; 99285; G0378; G0480

== ENCOUNTER 2024-09-22 20:43 | Inpatient (IN) | payer MEDICARE, MEDICAID ==
[~2024-09-22] VITALS: Ht 177.8 cm; Wt 72.1 kg
[~2024-09-22 20:43] MED LIST changes: +MELA3TAB89 PO; -RISP120S SQ
[2024-09-22 21:44] LABS: BASOPHILS % (AUTO) 0.8 % (0.0-2.0); EOSINOPHILS % (AUTO) 5.5 % (1.0-6.0); HEMATOCRIT 39.4 % (41-53); LYMPHOCYTES # (AUTO) 1.8 K/uL (1.0-4.8); LYMPHOCYTES % (AUTO) 21.1 % (22.0-44.0); MEAN CORPUSCULAR HEMOGLOBIN 31.7 pg (26.0-34.0); MEAN CORPUSCULAR HGB CONC 33.1 G/dL (31.0-37.0); MEAN CORPUSCULAR VOLUME 96 fL (80-100); MONOCYTES # (AUTO) 0.8 K/uL (0.1-1.0); MONOCYTES % (AUTO) 9.4 % (2.0-9.0); NEUTROPHILS # (AUTO) 5.4 K/uL (1.8-7.7); NEUTROPHILS % (AUTO) 63.2 % (40.0-70.0); PLATELET COUNT (AUTO) 175 K/uL (150-450); RED BLOOD CELL COUNT(AUTO) 4.12 MIL/uL (4.50-5.90); RED CELL DISTRIBUTION WIDTH 13.3 % (11.5-14.5); WHITE BLOOD COUNT (AUTO) 8.5 K/uL (4.5-11.0)
[2024-09-22 21:53] LABS: ANION GAP 9 mmol/L (8-16); CARBON DIOXIDE 27 mmol/L (22-29); CHLORIDE 103 mmol/L (98-107); GLOMERULAR FILTR. RATE CALC > 60 mL/min (>60); GLUCOSE,RANDOM 121 mg/dL (70-110); SODIUM SERUM 139 mmol/L (136-145); UREA NITROGEN, BLOOD 20 mg/dL (7-18)
[2024-09-22 22:12] LABS: ALCOHOL, BLOOD (SERUM) < 3 mg/dL (0-10)
[2024-09-22 22:48] LABS: COVID AG,FIA SOURCE NASAL SWAB
[2024-09-22 23:11] LABS: SARS-COV2 (COVID) ANTIGEN,FIA Negative (Negative)
[2024-09-23 01:38] LABS: APPEARANCE,URINE CLEAR (CLEAR); BILIRUBIN,URINE NEGATIVE (NEGATIVE); COLOR,URINE LIGHT YELLOW (YELLOW); GLUCOSE, URINE (UA) NEGATIVE (NEGATIVE); KETONES,URINE NEGATIVE (NEGATIVE); LEUKOCYTE ESTERASE ,URINE TRACE (NEGATIVE); NITRATE,URINE NEGATIVE (NEGATIVE); OCCULT BLOOD,URINE NEGATIVE (NEGATIVE); PROTEIN,URINE NEGATIVE (NEGATIVE); SPECIFIC GRAVITIY, URINE 1.012 (1.003-1.030); UROBILINOGEN,URINE <=1.0 mg/dL (<=1.0)
[2024-09-23 01:44] LABS: ALCOHOL, URINE DRUG SCREEN NEGATIVE (NEGATIVE); AMPHET/METH SCREEN,URINE NEGATIVE (NEGATIVE); BARBITURATE SCREEN, URINE NEGATIVE (NEGATIVE); BENZODIAZEPINES SCREEN,URINE NEGATIVE (NEGATIVE); CANNABINOID SCREEN,URINE NEGATIVE (NEGATIVE); COCAINE SCREEN,URINE NEGATIVE (NEGATIVE); METHADONE SCREEN, URINE NEGATIVE (NEGATIVE); OPIATE SCREEN,URINE NEGATIVE (NEGATIVE); PHENCYCLIDINE SCREEN,URINE NEGATIVE (NEGATIVE)
[2024-09-23 01:47] LABS: BACTERIA,URINE None Seen /HPF (None Seen); RBC,URINE None Seen /HPF (0-2); WBC,URINE 0-2 /HPF (0-5)
[2024-09-23 01:48] LABS: SQUAMOUS EPITHELIAL CELL,UR Few /LPF (None Seen)
[2024-09-23] MEDS ORDERED: LORazepam 1 MG TABLET PO PRN (02:45)
[2024-09-23] MEDS ORDERED: HALOPERIDOL 5 MG TABLET PO PRN (02:45)
[2024-09-23 02:48] VITALS: O2SAT 95
[2024-09-23 04:29] VITALS: BP 130/81; PULSE 76; RESP 18; TEMP 97.8; O2SAT 96
[2024-09-23] MEDS ORDERED: PNEUMOCOCCAL VACCINE POLYVALENT 0.5 ML SYRINGE [PPSV23] IM. ONE (08:15)
[2024-09-23] MEDS ORDERED: GuaiFENesin/D-METHORPHAN [SUGAR-FREE] 200-20MG/10 ML SYRUP UDCUP PO PRN (09:15)
[2024-09-23] MEDS ORDERED: ONDANSETRON 4 MG TABLET PO PRN (09:15)
[2024-09-23] MEDS ORDERED: MAGNESIUM HYDROXIDE SUSPENSION 30 ML UDCUP PO PRN (09:15)
[2024-09-23] MEDS ORDERED: MAG HYDROX/ALUMINUM HYD/SIMETH ES 30 ML SUSPENSION UDCUP PO PRN (09:15)
[2024-09-23] MEDS ORDERED: LOPERAMIDE HCL 2 MG CAPSULE PO PRN (09:15)
[2024-09-23] MEDS ORDERED: DOCUSATE SODIUM 100 MG CAPSULE PO PRN (09:15)
[2024-09-23] MEDS ORDERED: CloNIDine HCL 0.1 MG TABLET PO PRN (09:15)
[2024-09-23] MEDS ORDERED: PETROLATUM,WHITE 28 GM JELLY TP PRN (09:15)
[2024-09-23] MEDS ORDERED: NICOTINE 14 MG/24 HOUR PATCH TD PRN (09:15)
[2024-09-23] MEDS ORDERED: ALBUTEROL SULFATE HFA 90 MCG/PUFF 8 GM INHALER IH PRN (09:15)
[2024-09-23 10:48] VITALS: BP 144/81; PULSE 64; RESP 18; TEMP 97; O2SAT 97
[2024-09-23] MEDS: LITHIUM CARBONATE 300 MG CAPSULE PO SCH (11:22)
[2024-09-23] MEDS: ESCITALOPRAM OXALATE 10 MG TABLET PO SCH (11:22)
[2024-09-23] MEDS: OXcarbazepine 300 MG TABLET PO SCH (11:22)
[2024-09-23] MEDS: LORazepam 1 MG TABLET PO SCH (11:22)
[2024-09-23] MEDS: AmLODIPine BESYLATE 5 MG TABLET PO SCH (16:31)
[2024-09-23 21:17] VITALS: RESP 18
[2024-09-23] MEDS: MELATONIN 3 MG TABLET PO SCH (21:18)
[2024-09-24] MEDS: LEVOTHYROXINE SODIUM 75 MCG TABLET PO SCH (06:43)
[2024-09-24 09:19] VITALS: BP 148/81; PULSE 68; RESP 17; TEMP 97; O2SAT 98
[2024-09-24] MEDS: IBUPROFEN 400 MG TABLET PO PRN (09:19)
[2024-09-24 10:19] VITALS: BP 139/81; PULSE 69; RESP 17; TEMP 98; O2SAT 97
[2024-09-24 10:44] VITALS: BP 142/84; PULSE 71; RESP 18; TEMP 96.9; O2SAT 97
[2024-09-24 12:32] LABS: HEMOGLOBIN A1C 5.1 % (3.8-5.6)
[2024-09-24 12:59] LABS: CHOL/HDL RATIO 5.4 (4.2-7.3); THYROID STIMULATING HORMONE 2.36 uIU/mL (0.36-3.74)
[2024-09-24 20:57] VITALS: RESP 17
[2024-09-25 09:00] VITALS: BP 163/69; PULSE 69; RESP 18; TEMP 97.5; O2SAT 97
[2024-09-25 10:29] VITALS: RESP 18
[2024-09-25 14:06] VITALS: BP 136/74; PULSE 70; RESP 18; TEMP 97
[2024-09-25] MEDS: ACETAMINOPHEN 325 MG TABLET PO PRN (14:10)
[2024-09-25 15:10] VITALS: RESP 18
[2024-09-25 16:25] VITALS: BP 150/82; PULSE 109; RESP 18; TEMP 97.4
[2024-09-25 20:48] VITALS: BP 142/69; PULSE 72; RESP 18; TEMP 98.8
[2024-09-26] VITALS (8 sets, daily range): BP systolic 117–139; BP diastolic 76–86; PULSE 68–100; RESP 16–20; TEMP 97.2–98.1; O2SAT 97–99
[2024-09-27 08:54] VITALS: BP 140/90; PULSE 82; RESP 18; TEMP 97.9; O2SAT 98
[2024-09-27 13:10] VITALS: BP 140/90; PULSE 82; RESP 16; TEMP 97.9
[2024-09-27 14:10] VITALS: BP 126/68; PULSE 81; RESP 18; TEMP 98
[2024-09-27 21:01] VITALS: RESP 18; TEMP 97.7
[2024-09-27] MEDS: ZOLPIDEM TARTRATE 10 MG TABLET PO PRN (21:50)
[2024-09-28 06:34] VITALS: BP 137/78; PULSE 77; RESP 18; TEMP 98.2; O2SAT 98
[2024-09-28 07:37] VITALS: BP 165/83; PULSE 74; RESP 17; TEMP 98.1; O2SAT 97
[2024-09-28] MEDS ORDERED: LITH300C3 PO (09:56)
[2024-09-28] MEDS ORDERED: LORA1TAB25 PO (09:57)
[2024-09-28 11:16] VITALS: BP 165/83; PULSE 74; RESP 17; TEMP 98.1; O2SAT 97
[2024-09-28 11:28] VITALS: BP 128/71; PULSE 87; RESP 17; TEMP 98
[2024-09-28 12:28] VITALS: BP 146/71; PULSE 71; RESP 17; TEMP 98; O2SAT 97
== END 2024-09-28 17:30 | DRG 885 ==
LOC: EMS 20:44 → 3EI 09-23 02:59
PROVIDERS: ADMIT Psychiatry & Neurology Child & Adolescent Psychiatry; ATTEND Psychiatry & Neurology Child & Adolescent Psychiatry
PROC: GZ56ZZZ Individual Psychotherapy, Supportive (ICD-10-PCS; principal; 2024-09-23)
PROC: GZ52ZZZ Individual Psychotherapy, Cognitive (ICD-10-PCS; 2024-09-23)
DX: F25.9 Schizoaffective disorder, unspecified (principal); I10 Essential (primary) hypertension; Z20.822 Contact with and (suspected) exposure to COVID-19; E03.9 Hypothyroidism, unspecified; G47.00 Insomnia, unspecified; G62.9 Polyneuropathy, unspecified; I25.10 Atherosclerotic heart disease of native coronary artery without angina pectoris; J44.9 Chronic obstructive pulmonary disease, unspecified; K21.9 Gastro-esophageal reflux disease without esophagitis; G89.29 Other chronic pain; Z74.09 Other reduced mobility; D64.9 Anemia, unspecified; F03.90 Unspecified dementia, unspecified severity, without behavioral disturbance, psychotic disturbance, mood disturbance, and anxiety; Z88.5 Allergy status to narcotic agent
CPT/HCPCS: 80048; 80061; 80307; 81001; 83036; 84443; 85025; 87081; 97116; 97161; 97165; 99285; G0480

== ENCOUNTER 2025-05-22 08:22 | Inpatient (IN) | payer MEDICARE, MEDICAID ==
[~2025-05-22] VITALS: Ht 180.3 cm; Wt 70.3 kg
[~2025-05-22 08:22] MED LIST changes: +LEVO100 PO; -LEVO75 PO; +LITH300C3 PO; -LITH300T PO; +LORA1TAB25 PO; -MELA3TAB89 PO
[2025-05-22 08:43] LABS: COVID AG,FIA SOURCE NASAL SWAB
[2025-05-22 08:49] LABS: PLATELET COUNT (AUTO) 155 K/uL (150-450); RED BLOOD CELL COUNT(AUTO) 4.54 MIL/uL (4.50-5.90); RED CELL DISTRIBUTION WIDTH 13.0 % (11.5-14.5); WHITE BLOOD COUNT (AUTO) 6.0 K/uL (4.5-11.0)
[2025-05-22 09:11] LABS: SARS-COV2 (COVID) ANTIGEN,FIA Negative (Negative)
[2025-05-22 09:13] LABS: APPEARANCE,URINE CLEAR (CLEAR); GLUCOSE, URINE (UA) NEGATIVE (NEGATIVE); LEUKOCYTE ESTERASE ,URINE NEGATIVE (NEGATIVE); NITRATE,URINE NEGATIVE (NEGATIVE); OCCULT BLOOD,URINE NEGATIVE (NEGATIVE); PH,URINE DRUG SCREEN 6.0 (5.0-8.0); SPECIFIC GRAVITIY, URINE 1.017 (1.003-1.030)
[2025-05-22 09:19] LABS: AMPHET/METH SCREEN,URINE NEGATIVE (NEGATIVE); BARBITURATE SCREEN, URINE NEGATIVE (NEGATIVE); CANNABINOID SCREEN,URINE NEGATIVE (NEGATIVE); COCAINE SCREEN,URINE NEGATIVE (NEGATIVE); METHADONE SCREEN, URINE NEGATIVE (NEGATIVE)
[2025-05-22 09:20] LABS: CALCIUM, TOTAL 9.6 mg/dL (8.8-10.5); CREATININE 0.81 mg/dL (0.60-1.30); GLOMERULAR FILTR. RATE CALC > 60 mL/min (>60); GLUCOSE,RANDOM 96 mg/dL (70-110); SODIUM SERUM 139 mmol/L (136-145); UREA NITROGEN, BLOOD 18 mg/dL (7-18)
[2025-05-22 09:22] LABS: ALCOHOL, URINE DRUG SCREEN NEGATIVE (NEGATIVE)
[2025-05-22 22:40] VITALS: BP 145/94; PULSE 85; RESP 18; TEMP 98.1; O2SAT 98
[2025-05-23 06:58] LABS: PLATELET COUNT (AUTO) 171 K/uL (150-450); RED BLOOD CELL COUNT(AUTO) 4.35 MIL/uL (4.50-5.90); RED CELL DISTRIBUTION WIDTH 12.9 % (11.5-14.5); WHITE BLOOD COUNT (AUTO) 7.1 K/uL (4.5-11.0)
[2025-05-23 07:54] LABS: ASPARTATE AMINOTRANSFERASE 20 U/L (15-37); CALCIUM, TOTAL 9.0 mg/dL (8.8-10.5); CHOL/HDL RATIO 5.6 (4.2-7.3); CREATININE 0.82 mg/dL (0.60-1.30); GLOMERULAR FILTR. RATE CALC > 60 mL/min (>60); GLUCOSE,RANDOM 99 mg/dL (70-110); LDL CHOL (CALC.) 205 mg/dL (0-130); SODIUM SERUM 139 mmol/L (136-145); TOTAL PROTEIN, SERUM 7.0 g/dL (6.4-8.2); UREA NITROGEN, BLOOD 22 mg/dL (7-18)
[2025-05-23] MEDS: ESCITALOPRAM OXALATE 10 MG TABLET PO SCH (10:56)
[2025-05-23] MEDS ORDERED: ACETAMINOPHEN 325 MG TABLET PO PRN (11:15)
[2025-05-23] MEDS ORDERED: ONDANSETRON 4 MG TABLET PO PRN (11:15)
[2025-05-23] MEDS ORDERED: ALBUTEROL SULFATE HFA 90 MCG/PUFF 8 GM INHALER IH PRN (11:15)
[2025-05-23] MEDS ORDERED: MAGNESIUM HYDROXIDE SUSPENSION 30 ML UDCUP PO PRN (11:15)
[2025-05-23] MEDS ORDERED: PETROLATUM,WHITE 28 GM JELLY TP PRN (11:15)
[2025-05-23] MEDS ORDERED: MAG HYDROX/ALUMINUM HYD/SIMETH ES 30 ML SUSPENSION UDCUP PO PRN (11:15)
[2025-05-23] MEDS ORDERED: NICOTINE 14 MG/24 HOUR PATCH TD PRN (11:15)
[2025-05-23] MEDS ORDERED: DOCUSATE SODIUM 100 MG CAPSULE PO PRN (11:15)
[2025-05-23] MEDS ORDERED: GuaiFENesin/D-METHORPHAN [SUGAR-FREE] 200-20MG/10 ML SYRUP UDCUP PO PRN (11:15)
[2025-05-23] MEDS ORDERED: LOPERAMIDE HCL 2 MG CAPSULE PO PRN (11:15)
[2025-05-23 14:32] VITALS: BP 139/89; PULSE 79; RESP 18; TEMP 97.6; O2SAT 98
[2025-05-23] MEDS: IBUPROFEN 400 MG TABLET PO PRN (14:32)
[2025-05-23] MEDS: LITHIUM CARBONATE 300 MG CAPSULE PO SCH (16:44)
[2025-05-23 20:28] VITALS: RESP 18
[2025-05-24 10:18] VITALS: BP 171/86; PULSE 76; RESP 18; TEMP 98.4; O2SAT 97
[2025-05-24 10:58] LABS: PLATELET COUNT (AUTO) 169 K/uL (150-450); RED BLOOD CELL COUNT(AUTO) 4.34 MIL/uL (4.50-5.90); RED CELL DISTRIBUTION WIDTH 12.8 % (11.5-14.5); WHITE BLOOD COUNT (AUTO) 6.5 K/uL (4.5-11.0)
[2025-05-24 11:34] LABS: ASPARTATE AMINOTRANSFERASE 20 U/L (15-37); CALCIUM, TOTAL 9.0 mg/dL (8.8-10.5); CREATININE 0.73 mg/dL (0.60-1.30); GLOMERULAR FILTR. RATE CALC > 60 mL/min (>60); GLUCOSE,RANDOM 94 mg/dL (70-110); SODIUM SERUM 141 mmol/L (136-145); TOTAL PROTEIN, SERUM 7.2 g/dL (6.4-8.2); UREA NITROGEN, BLOOD 22 mg/dL (7-18)
[2025-05-24 12:06] LABS: CHOL/HDL RATIO 5.4 (4.2-7.3); LDL CHOL (CALC.) 200.0 mg/dL (0-130)
[2025-05-24 19:49] VITALS: BP 142/72; PULSE 81; RESP 18; TEMP 97.8
[2025-05-24] MEDS: ZOLPIDEM TARTRATE 10 MG TABLET PO PRN (20:59)
[2025-05-24 21:00] VITALS: BP 146/83; PULSE 70; RESP 19; TEMP 97.7; O2SAT 98
[2025-05-25] MEDS: ETHYL ALCOHOL 62% ANTISEPTIC NASAL SANITIZER 0.6 ML AMPUL NASAL SCH (08:50)
[2025-05-25 10:53] VITALS: BP 133/72; PULSE 82; RESP 18; TEMP 97.6; O2SAT 99
[2025-05-25 19:42] VITALS: BP 151/60; PULSE 72; RESP 14; TEMP 98; O2SAT 98
[2025-05-26 10:13] VITALS: BP 123/67; PULSE 84; RESP 18; TEMP 97.7; O2SAT 99
[2025-05-26 20:08] VITALS: BP 158/73; PULSE 83; RESP 18; TEMP 98.3; O2SAT 96
[2025-05-27 15:21] VITALS: BP 134/87; PULSE 78; RESP 17; TEMP 97.4; O2SAT 98
[2025-05-27 20:33] VITALS: BP 152/71; PULSE 82; RESP 17; TEMP 98.1; O2SAT 98
[2025-05-28 11:04] VITALS: BP 137/59; PULSE 72; RESP 18; TEMP 97.7
[2025-05-28] MEDS ORDERED: RISP-31 PO (13:42)
[2025-05-28] MEDS ORDERED: ETHY1MED2 NASAL (13:43)
== END 2025-05-28 15:00 | DRG 885 ==
LOC: EMS 08:23 → 3EX 22:33
PROVIDERS: ADMIT Psychiatry & Neurology Child & Adolescent Psychiatry; ATTEND Psychiatry & Neurology Child & Adolescent Psychiatry
PROC: GZ58ZZZ Individual Psychotherapy, Cognitive-Behavioral (ICD-10-PCS; 2025-05-23)
PROC: GZ56ZZZ Individual Psychotherapy, Supportive (ICD-10-PCS; 2025-05-23)
PROC: GZHZZZZ Group Psychotherapy (ICD-10-PCS; principal; 2025-05-24)
DX: F31.2 Bipolar disorder, current episode manic severe with psychotic features (principal); F03.918 Unspecified dementia, unspecified severity, with other behavioral disturbance; E03.9 Hypothyroidism, unspecified; I10 Essential (primary) hypertension; J44.9 Chronic obstructive pulmonary disease, unspecified; D64.9 Anemia, unspecified; F03.92 Unspecified dementia, unspecified severity, with psychotic disturbance; G89.29 Other chronic pain; K21.9 Gastro-esophageal reflux disease without esophagitis; G47.00 Insomnia, unspecified; G62.9 Polyneuropathy, unspecified; Z20.822 Contact with and (suspected) exposure to COVID-19; E78.5 Hyperlipidemia, unspecified; I25.10 Atherosclerotic heart disease of native coronary artery without angina pectoris; Z88.5 Allergy status to narcotic agent; Z79.899 Other long term (current) drug therapy
CPT/HCPCS: 80048; 80053; 80061; 80178; 80307; 81003; 83036; 84436; 84439; 84443; 85025; 87081; 97116; 97162; 99285; G0378; G0480